=== PATIENT | male | born 1985 | race Caucasian/White ===

== ENCOUNTER 2022-11-23 14:46 | Emergency (ER) | payer MEDICARE, MEDICAID, SELFPAY ==
--- NOTE | 2022-11-23 | ECG_ITS ---
Test Reason : CP Blood Pressure : / mmHG Vent. Rate : 085 BPM Atrial Rate : 085 BPM P-R Int : 144 ms QRS Dur : 090 ms QT Int : 394 ms P-R-T Axes : 069 080 072 degrees QTc Int : 468 ms Normal sinus rhythm Nonspecific ST and T wave abnormality Prolonged QT Abnormal ECG When compared with ECG of 22-OCT-2018 07:26, Vent. rate has increased BY [address] and T wave abnormality is now Present Referred By: Lynette Cuevas Electronically Signed By:MAHIN MI
--- NOTE | ~2022-11-23 | XR_ITS ---
EXAMINATION: XR CHEST CLINICAL INFORMATION: Chest pain COMPARISON: None available. TECHNIQUE: Frontal view of the chest was obtained. FINDINGS: No significant abnormality is noted involving the heart, lungs, mediastinum, bony thorax or soft tissues. No pneumothorax or effusions. Bone anchors left glenoid. XR/XR chest 1V IMPRESSION: No acute cardiopulmonary disease.
[2022-11-23 14:58] VITALS: BP 119/72; BP 135/88; PULSE 82; PULSE 99; RESP 19; TEMP 36.9; O2SAT 94; BMI 19.4
--- NOTE | 2022-11-23 14:59 | ECG_ITS ---
Test Reason : CHEST PAIN Blood Pressure : / mmHG Vent. Rate : 077 BPM Atrial Rate : 077 BPM P-R Int : 144 ms QRS Dur : 090 ms QT Int : 392 ms P-R-T Axes : 073 082 073 degrees QTc Int : 443 ms Normal sinus rhythm with sinus arrhythmia Nonspecific T wave abnormality Abnormal ECG When compared with ECG of 23-NOV-2022 14:57, QT has shortened Referred By: Lynette Cuevas Electronically Signed By:MAHIN MI
--- NOTE | 2022-11-23 15:01 | ED_ITS ---
HPI - Chest Pain General Chief Complaint: Chest Pain Stated Complaint: CP X4 DAYS,SEEN@[email or web address] T-1 FOR SAME PER EMS Time Seen by Provider: 11/23/22 14:49 Source: patient Mode of arrival: EMS Limitations: no limitations History of Present Illness HPI narrative: Patient comes to the emergency room complaining of chest pain that started an hour while he was at work. Patient states that he was recently seen at [facility] , patient states he was recently diagnosed with new onset atrial fibrillation. Per EMS, patient has been in sinus rhythm the whole time. Patient was given nitro sublingual and aspirin in the ambulance. Patient admits using cocaine. EMS gives the patient aspirin and nitroglycerin. Related Data Allergies Allergy/AdvReac Type Severity Reaction Status Date / Time LAUNDRY DETERGENT Allergy Unknown UNKNOWN Uncoded 12/19/19 15:32 Review of Systems Review of Systems: Constitutional : No Weight loss, No Fever, No Chills, No Night Sweats, No Fatigu e, No Malaise ENT/Mouth : No Hearing loss, No Ear Pain, No Nasal Congestion, No Sinus Pain, No Hoarseness, No sore throat, No Rhinorrhea, No Swallowing Difficulty Eyes: No Eye Pain, No Swelling, No Redness, No Foreign Body, No Discharge, No Vision Changes Cardiovascular complaining of sharp substernal chest pain,, No SOB, No Dyspnea on Exertion, No Orthopnea, No Edema, No Palpitations Respiratory : No Cough, No Sputum, No Wheezing, No Smoke Exposure, No Dyspnea Gastrointestinal : No Nausea, No Vomiting, No Diarrhea, No Constipation, No abdominal Pain, No Hematochezia, No Melena Genitourinary : no irregular bleeding, No Dysuria, No Urinary Frequency, No Hematuria, No Urinary Incontinence, No Urgency, No Flank Pain, No Urinary Flow Changes, No Hesitancy Musculoskeletal : No joint pain, No Myalgias, No Joint Swelling Skin : No Skin Lesions, No rash Neuro : No Weakness, No Numbness, No Paresthesias, No Loss of Consciousness, No Dizziness, No Headache Psych : No Anxiety/Panic, No Depression, No SI/HI/AH/VH, No Social Issues, Heme/Lymph: No Bruising, No Bleeding,No Lymphadenopathy Endocrine : No Polyuria, No Polydipsia, No Temperature Intolerance PMFSH Past Medical History Medical History (Updated 11/23/22 @ 17:48 by Lynette Cuevas MD) Polysubstance abuse Social History Social History Advance Directives: No Advance Directives Information Provided: No Physical Exam Vital Signs: Vital Signs: Last Vital Signs Temp 98.4 F 11/23/22 14:58 Pulse 72 11/23/22 16:40 Resp 12 11/23/22 16:40 BP 103/60 11/23/22 16:40 Pulse Ox 99 11/23/22 16:40 O2 Del Method Room Air 11/23/22 16:40 BMI result Body Mass Index 19.4 Const: Other: Appearance: Alert. Oriented X3. No acute distress. Eyes: Pupils equal, round and reactive to light. ENT: Pharynx normal. Neck: Normal inspection. Neck supple. No lymph nodes noted. No crepitus CVS: Normal heart rate and rhythm. Pulses normal. Normal S1 and S2 Respiratory: No respiratory distress. Breath sounds normal. No Wheezing. No rales Abdomen: Soft and nontender. No rigidity. No distention. Skin: Skin warm and dry. Normal skin color. Normal skin turgor. Extremities: No lower extremity edema. No Lacerations. No Rash Neuro: Oriented X 3. No motor deficit. No sensory deficit. Moving all extremities. No slurred speech. CN 2 through 12 grossly intact Psych: calm, cooperative, normal affect Medical Decision Making Medical Decision Making MDM Narrative: -my interpretation of EKG: Normal sinus rhythm, heart rate 77, no ST segment depression or elevation, no T-wave inversion, QTC 443 -my interpretation of labs, white blood cell count 7.6, D-dimer negative, no significant electrolyte abnormalities, BMP and troponin negative -my interpretation of chest x-ray: No Pneumonia/infiltrate -vitals normal, blood pressure 119/72, heart rate 82, no fever -I requested records from [facility], patient was discharged on 11/14/2022, diagnosed with chest pain related to cocaine into some basal spasms or other drug contaminant with no cardiac enzyme changes Differential Diagnosis Differential Diagnoses: The differential diagnosis associated with the presentation includes (Cocaine induced vasospasm, pleurisy, ACS, PE) Admission/Observation Consideration of admission/observation: Escalation of care including admission/observation considered (Patient complaining of chest pain, admission was considered) Lab Data MDM Lab Attestation statement: I reviewed the patient's lab results. 11/23/22 15:57 11/23/22 15:57 Labs: Lab Results 11/23/22 11/23/22 11/23/22 Range/Units 15:57 15:57 15:57 WBC 7.6 (4.8-10.8) X10*3/uL RBC 4.28 L (4.60-5.80) X10*6/uL Hgb 13.8 L (14.0-18.0) g/dl Hct 41.1 L (42.0-52.0) % MCV 96.0 (80.0-98.0) fL MCH 32.2 (27.0-33.0) pg MCHC 33.6 (31.0-36.0) g/dl RDW 12.3 (11.0-16.0) % Plt Count 219 (160-400) X10*3/uL MPV 10.4 (9.4-12.4) fL Immature Gran % (Auto) 0.3 (0.0-0.4) % Neut % (Auto) 58.9 (45-73) % Lymph % (Auto) 29.6 (20-40) % [place] % (Auto) 7.5 (2-11) % Eos % (Auto) 3.0 (0-4) % Baso % (Auto) 0.7 (0-2) % Lymph # (Auto) 2.3 (1.2-4.9) X10*3/uL [place] # (Auto) 0.6 (0.1-1.2) X10*3/uL Eos # (Auto) 0.2 (0.0-0.4) X10*3/uL Baso # (Auto) 0.1 (0.0-0.2) X10*3/uL Abs Immat Gran (auto) 0.02 (0.00-0.03) X10*3/uL Absolute Neuts (auto) 4.5 (2.0-8.3) x10*3/uL Absolute Nucleated RBC 0.000 (0.0-0.012) X10*3/uL Nucleated RBC % (auto) 0.0 (0.0-0.2) /100WBC PT (11.1-13.3) SEC INR (0.9-1.1) D-Dimer High Sensitivty < 150 NG/ML Sodium 138 (135-145) mmol/L Potassium 3.8 (3.3-5.1) mmol/L Chloride 103 (96-108) mmol/L Carbon Dioxide 28 (22-29) mmol/L Anion Gap 11 L (12-20) BUN 23 H (9-16) mg/dL Creatinine 0.95 (0.5-1.4) mg/dL Estim Creat Clear Calc 87.8 Estimated GFR > 60 Random Glucose 128 H (60-115) mg/dL Calcium 9.6 (8.4-10.2) mg/dL Magnesium 2.1 (1.6-2.6) mg/dL Total Bilirubin 0.2 (0.0-1.0) mg/dL Direct Bilirubin < 0.2 (0.0-0.5) mg/dL AST 15 (5-37) U/L ALT 13 (0-40) U/L Alkaline Phosphatase 60 (39-117) U/L Troponin I High Sens (<3.5-35.0) ng/L B-Natriuretic Peptide (<100) pg/mL Total Protein 6.6 (6.5-8.0) g/dL Albumin 4.2 (3.5-5.0) g/dL Ethyl Alcohol mg/dL 11/23/22 11/23/22 11/23/22 Range/Units 15:57 15:57 15:57 WBC (4.8-10.8) X10*3/uL RBC (4.60-5.80) X10*6/uL Hgb (14.0-18.0) g/dl Hct (42.0-52.0) % MCV (80.0-98.0) fL MCH (27.0-33.0) pg MCHC (31.0-36.0) g/dl RDW (11.0-16.0) % Plt Count (160-400) X10*3/uL MPV (9.4-12.4) fL Immature Gran % (Auto) (0.0-0.4) % Neut % (Auto) (45-73) % Lymph % (Auto) (20-40) % [place] % (Auto) (2-11) % Eos % (Auto) (0-4) % Baso % (Auto) (0-2) % Lymph # (Auto) (1.2-4.9) X10*3/uL [place] # (Auto) (0.1-1.2) X10*3/uL Eos # (Auto) (0.0-0.4) X10*3/uL Baso # (Auto) (0.0-0.2) X10*3/uL Abs Immat Gran (auto) (0.00-0.03) X10*3/uL Absolute Neuts (auto) (2.0-8.3) x10*3/uL Absolute Nucleated RBC (0.0-0.012) X10*3/uL Nucleated RBC % (auto) (0.0-0.2) /100WBC PT 12.3 (11.1-13.3) SEC INR 1.0 (0.9-1.1) D-Dimer High Sensitivty NG/ML Sodium (135-145) mmol/L Potassium (3.3-5.1) mmol/L Chloride (96-108) mmol/L Carbon Dioxide (22-29) mmol/L Anion Gap (12-20) BUN (9-16) mg/dL Creatinine (0.5-1.4) mg/dL Estim Creat Clear Calc Estimated GFR Random Glucose (60-115) mg/dL Calcium (8.4-10.2) mg/dL Magnesium (1.6-2.6) mg/dL Total Bilirubin (0.0-1.0) mg/dL Direct Bilirubin (0.0-0.5) mg/dL AST (5-37) U/L ALT (0-40) U/L Alkaline Phosphatase (39-117) U/L Troponin I High Sens < 2.7 (<3.5-35.0) ng/L B-Natriuretic Peptide < 10 (<100) pg/mL Total Protein (6.5-8.0) g/dL Albumin (3.5-5.0) g/dL Ethyl Alcohol mg/dL 11/23/22 Range/Units 15:57 WBC (4.8-10.8) X10*3/uL RBC (4.60-5.80) X10*6/uL Hgb (14.0-18.0) g/dl Hct (42.0-52.0) % MCV (80.0-98.0) fL MCH (27.0-33.0) pg MCHC (31.0-36.0) g/dl RDW (11.0-16.0) % Plt Count (160-400) X10*3/uL MPV (9.4-12.4) fL Immature Gran % (Auto) (0.0-0.4) % Neut % (Auto) (45-73) % Lymph % (Auto) (20-40) % [place] % (Auto) (2-11) % Eos % (Auto) (0-4) % Baso % (Auto) (0-2) % Lymph # (Auto) (1.2-4.9) X10*3/uL [place] # (Auto) (0.1-1.2) X10*3/uL Eos # (Auto) (0.0-0.4) X10*3/uL Baso # (Auto) (0.0-0.2) X10*3/uL Abs Immat Gran (auto) (0.00-0.03) X10*3/uL Absolute Neuts (auto) (2.0-8.3) x10*3/uL Absolute Nucleated RBC (0.0-0.012) X10*3/uL Nucleated RBC % (auto) (0.0-0.2) /100WBC PT (11.1-13.3) SEC INR (0.9-1.1) D-Dimer High Sensitivty NG/ML Sodium (135-145) mmol/L Potassium (3.3-5.1) mmol/L Chloride (96-108) mmol/L Carbon Dioxide (22-29) mmol/L Anion Gap (12-20) BUN (9-16) mg/dL Creatinine (0.5-1.4) mg/dL Estim Creat Clear Calc Estimated GFR Random Glucose (60-115) mg/dL Calcium (8.4-10.2) mg/dL Magnesium (1.6-2.6) mg/dL Total Bilirubin (0.0-1.0) mg/dL Direct Bilirubin (0.0-0.5) mg/dL AST (5-37) U/L ALT (0-40) U/L Alkaline Phosphatase (39-117) U/L Troponin I High Sens (<3.5-35.0) ng/L B-Natriuretic Peptide (<100) pg/mL Total Protein (6.5-8.0) g/dL Albumin (3.5-5.0) g/dL Ethyl Alcohol < 10 mg/dL Independent Interpretation I performed an independent interpretation of an: EKG and Plain X-Ray Radiology Impression Discussion of test interpretation with radiology: I have reviewed the radiologist's reading. Radiologist Impression: FINDINGS: No significant abnormality is noted involving the heart, lungs, mediastinum, bony thorax or soft tissues. No pneumothorax or effusions. Bone anchors left glenoid. XR/XR chest 1V IMPRESSION: No acute cardiopulmonary disease. External Record Review External record reviewed: Inpatient record (From [facility]) Critical Care Time Critical Care Time Critical Care Time: Yes Total Critical Care Time: 60 Attestation: I have personally provided critical care time. Time includes review of lab data, radiology results, discussion with consultants, and monitoring for potential decompensation. Intervention performed as documented. Discharge Plan Discharge Clinical Impression: Chest pain Patient Disposition: Home, Self-Care Instructions: Chest Pain (ED) Additional Instructions: Please stop using cocaine. Cocaine may cause spasms in the coronary arteries in your heart, which may mimic a heart attack. Please follow-up with your primary care physician tomorrow. If you have any worsening or new symptoms, please return to the emergency room or call 911
[2022-11-23 16:07] LABS: MANUAL DIFF FLAG NO
[2022-11-23 16:12] LABS: Basophils Absolute Auto 0.1 X10*3/uL (0.0-0.2); Basophils Percent Auto 0.7 % (0-2); Eosinophils Absolute Auto 0.2 X10*3/uL (0.0-0.4); Hematocrit 41.1 % (42.0-52.0); Hemoglobin 13.8 g/dl (14.0-18.0); Imm Gran Abs Auto 0.02 X10*3/uL (0.00-0.03); Imm Gran Pct Auto 0.3 % (0.0-0.4); Lymphocytes Absolute Auto 2.3 X10*3/uL (1.2-4.9); Lymphocytes Percent Auto 29.6 % (20-40); Mean Corpuscular HGB Conc 33.6 g/dl (31.0-36.0); Mean Corpuscular Hemoglobin 32.2 pg (27.0-33.0); Mean Platelet Volume 10.4 fL (9.4-12.4); Monocytes Absolute Auto 0.6 X10*3/uL (0.1-1.2); Monocytes Percent Auto 7.5 % (2-11); Neutrophils Absolute Auto 4.5 x10*3/uL (2.0-8.3); Neutrophils Percent Auto 58.9 % (45-73); Platelet Count 219 X10*3/uL (160-400); Red Blood Count 4.28 X10*6/uL (4.60-5.80); Red Cell Distribution Width 12.3 % (11.0-16.0); White Blood Count 7.6 X10*3/uL (4.8-10.8)
[2022-11-23 16:18] LABS: Prothrombin Time 12.3 SEC (11.1-13.3)
[2022-11-23 16:24] LABS: Alanine Aminotransferase 13 U/L (0-40); Albumin Level 4.2 g/dL (3.5-5.0); Alkaline Phosphatase 60 U/L (39-117); Anion Gap 11 (12-20); Aspartate Amino Transferase 15 U/L (5-37); Bilirubin Direct < 0.2 mg/dL (0.0-0.5); Bilirubin Total 0.2 mg/dL (0.0-1.0); Blood Urea Nitrogen 23 mg/dL (9-16); Calcium 9.6 mg/dL (8.4-10.2); Carbon Dioxide 28 mmol/L (22-29); Chloride 103 mmol/L (96-108); Creatinine Clr Calc Pharmacy 87.8; Estimated Glomerular Filt Rate > 60; Glucose Random 128 mg/dL (60-115); Magnesium 2.1 mg/dL (1.6-2.6); Potassium 3.8 mmol/L (3.3-5.1); Sodium 138 mmol/L (135-145); Total Protein 6.6 g/dL (6.5-8.0)
[2022-11-23 16:25] LABS: Ethanol < 10 mg/dL
[2022-11-23 16:28] LABS: B Type Natriuretic Peptide < 10 pg/mL (<100)
[2022-11-23 16:33] LABS: Troponin-I High Sensitivity < 2.7 ng/L (<3.5-35.0)
[2022-11-23 16:40] VITALS: BP 103/60; PULSE 72; RESP 12; O2SAT 99
[2022-11-23 16:49] LABS: D Dimer High Sensitivity < 150 NG/ML
[2022-11-23 18:03] LABS: Amphetamine Screen Urine Not Detected (Not Detect); Barbiturates, Urine Not Detected (Not Detect); Benzodiazepines Screen Urine Not Detected (Not Detect); Cannabinoid Screen Urine Not Detected (Not Detect); Cocaine Screen Urine POSITIVE (Not Detect); Fentanyl, urine Not Detected (Not Detect); Opiate Screen Urine Not Detected (Not Detect); Phencyclidine Screen Urine Not Detected (Not Detect)
== END 2022-11-23 18:09 | disposition home or self-care (01) ==
PROVIDERS: Emergency Provider Emergency Medicine
DX: R07.9 Chest pain, unspecified (principal); I48.91 Unspecified atrial fibrillation; I49.8 Other specified cardiac arrhythmias; F14.90 Cocaine use, unspecified, uncomplicated; Z79.01 Long term (current) use of anticoagulants; Z79.82 Long term (current) use of aspirin; Z79.899 Other long term (current) drug therapy
CPT/HCPCS: 36415; 71045; 80048; 80076; 80307; 83735; 83880; 84484; 85025; 85379; 85610; 93005; 99283; 99284

== ENCOUNTER 2023-10-10 15:18 | Outpatient (AMB) | payer MEDICARE, MEDICAID, SELFPAY ==
--- NOTE | 2023-10-10 15:35 | MHC.PC.OV ---
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 Pt would like to discuss arthritis and cardiac issues. Allergies LAUNDRY DETERGENT Allergy (Unknown, Uncoded 10/10/23 16:59) UNKNOWN Medication List - Last Reconciled 10/10/23 by LENNY Sullivan fluoxetine 20 mg PO DAILY hydroxyzine HCl 25 mg PO BEDTIME Tobacco use date assessed: 10/10/23 Dental Screening Dental Screen Date: 10/10/23 Was dental information given to patient?: Patient declined HPI [employer]GER [employer]ICATIONS-Requesting Physical Exam HPI Details New pt is here for a PE. Will order labs. Pt has not seen a medical provider in over 30 years. He has a hx of severe anxiety and depression. He is seeing a therapist weekly and a psychiatrist. Denies any SI and HI. Pt c/o bilat knee pain. He reports a hx of arthritis. Will order XRs. Pt reports body/joint pains. Will order labs. [facility] Medical History Anxiety Polysubstance abuse Surgical History Hx of repair of rotator cuff Social History Housing: House Patient Tobacco Use Status: Current everyday Tobacco user Cigarettes Per Day: 20 service: No Current occupational status: unemployed Cognitive needs: No Hearing needs: No Vision needs: No Questionnaire PHQ-9 Over the last 2 weeks, how often have you been bothered by any of the following problems? 92668 - PHQ-9 Billing: Patient declined-do not bill Source: Developed by Drs. Aaron Mcfarlane, Sugey Woods, Dereje Vasquez and colleagues, with an educational tracy from [employer]. AUDIT C Alcohol Use Questionnaire (AUDIT-C) 1. How often do you have a drink containing alcohol?: Monthly or less 2. How many drinks containing alcohol do you have on a typical day when you are drinking?: 1 or 2 3. How often do you have six or more drinks on one occasion?: Never Total Score: 1 Score Reviewed/Action Taken: No CHI-7 AMB Questionnaire CHI-7 Assessment Billing CHI-7 Assessment Tool: pt declined-do not bill Review of Systems Const Denies chills and Denies fever(s) Eyes Denies blurry vision ENT Denies vertigo, Denies dizziness and Denies sore throat Card Denies chest pain at rest, Denies chest pain with activity, Denies diaphoresis, Denies dyspnea and Denies dyspnea on exertion Resp Denies cough, Denies dyspnea, Denies dyspnea on exertion and Denies wheezing GI Denies abdominal pain, Denies melena, Denies hematochezia, Denies constipation, Denies diarrhea and Denies loose stools Denies hematuria Musc Denies numbness and Denies tingling Skin/Breast Denies lesions Neuro Denies vertigo, Denies dizziness, Denies numbness and Denies tingling Psych Denies anxiety, Denies depression, Denies homicidal ideation, Denies suicidal ideation and Denies other (substance abuse) Aller/Immun Denies wheezing Physical exam (Primary Care) Vital Signs: Last Vital Signs Pulse 97 10/10/23 15:37 BP 128/80 10/10/23 15:37 Pulse Ox 97 10/10/23 15:37 Oxygen Delivery Method Room Air 10/10/23 15:37 BMI result Body Mass Index 19.3 Tobacco/Smoking Status: Tobacco use Status Tobacco use date assessed 10/10/23 10/10/23 15:43 Patient Tobacco Use Status Current everyday Tobacco 10/10/23 15:43 Const General: cooperative Nutritional Appearance: well nourished Orientation/consciousness: patient oriented x3 HENMT Head: Yes normal to inspection, Yes normocephalic and Yes atraumatic Ears: TM's normal bilaterally Eyes General: appearance normal, both eyes and all related structures Alignment and Position: alignment normal and position normal Neck Neck: Yes normal visual inspection and Yes no lymphadenopathy Thyroid: Thyroid normal Resp Effort & Inspection: normal respiratory effort Auscultation: clear to auscultation bilaterally Cardio Rate: regular rate Rhythm: regular rhythm Heart sounds: S1 normal heart sound present, S2 normal heart sound present and no murmurs GI Palpation (GI): Soft to palpation and nontender Auscultation: normal bowel sounds Male General Exam: Yes normal external exam Penis: normal penis Scrotum: scrotum normal, testes descended bilaterally and no inguinal hernias Testes: no testicular mass Skin Other: circular scars to bilat dorsal forearms (previous cigarette maria) Rashes: no rashes Neuro General: patient oriented x3, moves all extremities, no focal motor deficits and deep tendon reflexes 2+ bilaterally Romberg Test: Negative Extrem Other: bilat knees: slight crepitus with extension and flexion, tenderness with palpation, no active swelling Psych Appearance: grossly normal Mental Status: mental status grossly normal Speech and movement: Normal speech and movement present Affect: normal affect Attitude: cooperative Thought process: Normal thought process present Thought content: Normal thought content present Insight: Good insight present (Psych) Judgement: Good judgement present (Psych) Assessment and Plan Assessment & Plan (1) Depression: Code(s): F32.A - Depression, unspecified Plan: Following up with therapist and psychiatrist (2) Encounter for routine adult physical exam with abnormal findings: Code(s): Z00. - Encounter for general adult medical examination with abnormal findings Plan: Labs ordered (3) Bilateral knee pain: Code(s): M25.561 - Pain in right knee; M25.562 - Pain in left knee Plan: XRs ordered (4) Joint pain: Code(s): M25.50 - Pain in unspecified joint Plan: XRs ordered and labs ordered Plan The patient agreed to the use of a medical office worker for this encounter. Scribed for LENNY Brooks by Jenifer Vargas medical office worker, on 10/10/2023 at 16:20 EST. Orders: Orders TSH reflex Free T4 Today Z00. - Encounter for general adult medical examination with abnormal findings Lipid Panel Today Z00.01 - Encounter for general adult medical examination with abnormal findings XR knee LT 2V Today M25.561 - Pain in right knee, M25.562 - Pain in left knee Lyme IgG/IgM w/reflex to WB Today M25.50 - Pain in unspecified joint Rheumatoid Factor Today M25.50 - Pain in unspecified joint Cyclic Citrullinated Peptide Today M25.50 - Pain in unspecified joint Complete Blood Count Auto Diff Today Z00. - Encounter for general adult medical examination with abnormal findings Comprehensive [place]. Panel Fast Today Z00.01 - Encounter for general adult medical examination with abnormal findings UA CC w/rflx Micro + Cult Today Z00.01 - Encounter for general adult medical examination with abnormal findings XR knee RT 2V Today M25.561 - Pain in right knee, M25.562 - Pain in left knee Tick-borne Disease Molecular Today M25.50 - Pain in unspecified joint CHEMA Reflex Titer and Pattern Today M25.50 - Pain in unspecified joint Erythrocyte Sedimentation Rate Today M25.50 - Pain in unspecified joint C Reactive Protein Today M25.50 - Pain in unspecified joint Uric Acid Today M25.50 - Pain in unspecified joint Coding Level of Care Code New Pt Level 3 (46703) New Pt Prev Care 40-64y(08206) Diagnoses Depression F32.A Encounter for routine adult physical exam with abnormal findings Z00.01 Bilateral knee pain M25.561; M25.562 Joint pain M25.50
[2023-10-10 15:37] VITALS: BP 128/80; PULSE 97; O2SAT 97; BMI 19.3
== END 2023-10-10 16:44 | disposition home or self-care (01) ==
PROVIDERS: PCP Nurse Practitioner Family; Visit Provider Nurse Practitioner Family
DX: Z00.01 Encounter for general adult medical examination with abnormal findings (principal); F32.A Depression, unspecified; M25.561 Pain in right knee; M25.562 Pain in left knee; M25.50 Pain in unspecified joint
CPT/HCPCS: 99203; 99386

== ENCOUNTER 2023-10-25 09:59 | Outpatient (REF) | payer MEDICAID, SELFPAY ==
--- NOTE | ~2023-10-25 | XR_ITS ---
EXAMINATION: Bilateral knee series CLINICAL INFORMATION: Pain in the right and left knee COMPARISON: None. TECHNIQUE: 2 views of each knee FINDINGS: Left knee: There is well-corticated ossification at the level of the tibial tubercle compatible with old Mehrdad-Schlatter's disease. The bones joints and soft tissues are otherwise unremarkable. No effusion Right knee: The bones joints soft tissues are normal without effusion. XR/XR knee LT 2V IMPRESSION: LEFT KNEE: Findings compatible with old [place]-Schlatter's disease. No acute abnormality RIGHT KNEE: Normal.
--- NOTE | ~2023-10-25 | XR_ITS ---
EXAMINATION: Bilateral knee series CLINICAL INFORMATION: Pain in the right and left knee COMPARISON: None. TECHNIQUE: 2 views of each knee FINDINGS: Left knee: There is well-corticated ossification at the level of the tibial tubercle compatible with old Mehrdad-Schlatter's disease. The bones joints and soft tissues are otherwise unremarkable. No effusion Right knee: The bones joints soft tissues are normal without effusion. XR/XR knee RT 2V IMPRESSION: LEFT KNEE: Findings compatible with old [place]-Schlatter's disease. No acute abnormality RIGHT KNEE: Normal.
[2023-10-25 13:21] LABS: MANUAL DIFF FLAG NO
[2023-10-25 13:30] LABS: Basophils Absolute Auto 0.1 X10*3/uL (0.0-0.2); Basophils Percent Auto 0.7 % (0-2); Eosinophils Absolute Auto 0.1 X10*3/uL (0.0-0.4); Eosinophils Percent Auto 1.8 % (0-4); Hematocrit 47.7 % (42.0-52.0); Hemoglobin 16.5 g/dl (14.0-18.0); Imm Gran Abs Auto 0.03 X10*3/uL (0.00-0.03); Imm Gran Pct Auto 0.4 % (0.0-0.4); Lymphocytes Absolute Auto 2.4 X10*3/uL (1.2-4.9); Lymphocytes Percent Auto 32.9 % (20-40); Mean Corpuscular HGB Conc 34.6 g/dl (31.0-36.0); Mean Corpuscular Hemoglobin 33.5 pg (27.0-33.0); Mean Corpuscular Volume 96.8 fL (80.0-98.0); Mean Platelet Volume 11.3 fL (9.4-12.4); Monocytes Absolute Auto 0.4 X10*3/uL (0.1-1.2); Monocytes Percent Auto 5.5 % (2-11); Neutrophils Absolute Auto 4.2 x10*3/uL (2.0-8.3); Neutrophils Percent Auto 58.7 % (45-73); Platelet Count 252 X10*3/uL (160-400); Red Blood Count 4.93 X10*6/uL (4.60-5.80); Red Cell Distribution Width 12.9 % (11.0-16.0); White Blood Count 7.2 X10*3/uL (4.8-10.8)
[2023-10-25 13:58] LABS: Alanine Aminotransferase 16 U/L (0-40); Albumin Level 4.7 g/dL (3.5-5.0); Alkaline Phosphatase 65 U/L (39-117); Anion Gap 14 (12-20); Aspartate Amino Transferase 16 U/L (5-37); Bilirubin Total 0.4 mg/dL (0.0-1.0); Blood Urea Nitrogen 11 mg/dL (9-16); C Reactive Protein < 0.10 mg/dL (< or = 0.50); Calcium 10.2 mg/dL (8.4-10.2); Carbon Dioxide 25 mmol/L (22-29); Chloride 104 mmol/L (96-108); Cholesterol 169 mg/dL (<200); Estimated Glomerular Filt Rate > 60; Glucose Fasting 86 mg/dL (60-99); HDL Cholesterol 49 mg/dL (>40); LDL Cholesterol Calculated 102 mg/dL (<100); Sodium 139 mmol/L (135-145); Total Protein 7.3 g/dL (6.5-8.0); Triglycerides 93 mg/dL (<150); Uric Acid 4.4 mg/dL (3.4-7.0)
[2023-10-25 14:03] LABS: TSH reflex Free T4 0.95 uIU/mL (0.32-4.0)
[2023-10-25 14:05] LABS: Appearance Urine Clear; Color Urine Yellow; Glucose Urine UA Negative (Negative); Leukocyte Esterase Urine Negative (Negative); Nitrite Urine Negative (Negative); PH 7.5 (5.0-9.0); Urine Blood Negative (Negative); Urine Ketones Negative (Negative); Urine Protein Negative (Neg-Trace)
[2023-10-25 14:06] LABS: Erythrocyte Sedimentation Rate 2 MM/HR (0-15)
[2023-10-25 14:07] LABS: Rheumatoid Factor < 13.0 IU/mL (<15.0)
[2023-10-26 10:58] LABS: Lyme Abs Screen <0.90 index
[2023-10-27 15:18] LABS: Cyclic Citrullinated Peptide <16 UNITS
[2023-10-27 15:47] LABS: A. Phagocytphilium DNA,RT-PCR NOT DETECTED (NOT DETECTED); Babesia Microti DNA, RT-PCR NOT DETECTED (NOT DETECTED); Borrelia Miyamotoi,DNA RT-PCR NOT DETECTED (NOT DETECTED); E.Chaffeensis DNA RT-PCR NOT DETECTED (NOT DETECTED); Lyme(Borrelia ssp)DNA RT-PCR NOT DETECTED (NOT DETECTED)
[2023-10-31 10:08] LABS: Anti Nuclear Antibody Pattern Nuclear, Homogeneous; Anti Nuclear Antibody Screen POSITIVE (NEGATIVE); Anti Nuclear Antibody Titer 1:40 titer
== END 2023-10-25 10:00 | disposition home or self-care (01) ==
LOC: HO.HMGCX 09:59
PROVIDERS: PCP Nurse Practitioner Family; Visit Provider Nurse Practitioner Family
DX: M25.561 Pain in right knee (principal); M25.562 Pain in left knee; M25.50 Pain in unspecified joint; Z13.6 Encounter for screening for cardiovascular disorders; Z00.01 Encounter for general adult medical examination with abnormal findings
CPT/HCPCS: 36415; 73560; 80053; 80061; 81003; 84443; 84550; 85025; 85652; 86038; 86039; 86140; 86200; 86431; 86617; 86618; 87468; 87469; 87478; 87484; 87798

== ENCOUNTER 2023-11-14 08:03 | Outpatient (REF) | payer MEDICAID, SELFPAY ==
--- NOTE | ~2023-11-14 | XR_ITS ---
EXAMINATION: XR SHOULDER, LEFT CLINICAL INFORMATION: Left shoulder pain COMPARISON: None available. TECHNIQUE: AP external rotation, Grashey, scapular Y, and axillary views of the left shoulder. FINDINGS: No acute fracture or dislocation. Postsurgical changes with surgical anchors in the glenoid fossa noted. XR/XR shoulder LT min 2V IMPRESSION: No acute fracture or dislocation. Electronically signed by: Gale Burkett MD 12/12/2023 06:34 PM EDT
== END 2023-11-14 08:04 | disposition home or self-care (01) ==
LOC: HO.HMGCX 08:03
PROVIDERS: PCP Nurse Practitioner Family; Visit Provider Nurse Practitioner Family
DX: M25.512 Pain in left shoulder (principal)
CPT/HCPCS: 73030

== ENCOUNTER 2024-01-15 13:58 | Outpatient (AMB) | payer MEDICARE, MEDICAID, SELFPAY ==
--- NOTE | 2024-01-15 14:00 | A.OFFPC_ITS ---
Vital Signs 01/15/24 14:01 Height 5 ft 9 in Weight 133 lb 8 oz BMI 19.7 BP 132/80 Blood Pressure Location Rt brachial Position Standing Pulse 78 Pulse Source Pulse Oximeter Pulse Oximetry (%) 98 Intake Visit Reasons: 3 Month F/U Intake Note: pt is here for 3 month follow up Allergies LAUNDRY DETERGENT Allergy (Unknown, Uncoded 10/10/23 16:59) UNKNOWN Tobacco use date assessed: 10/10/23 Dental Screening Dental Screen Date: 10/10/23 HPI 3 Month F/U HPI Details Pt c/o joint pains. He reports popping and clicking of his joints, with pains. Pt had a positive CHEMA. He is seeing rheumatology this week. Will order XRs of elbows, increased elbow pains bilat. Denies fever, chills, and dizziness. PFSH Medical History Anxiety Polysubstance abuse Surgical History Hx of repair of rotator cuff Social History Housing: House Patient Tobacco Use Status: Current everyday Tobacco user Cigarettes Per Day: 20 service: No Current occupational status: unemployed Cognitive needs: No Hearing needs: No Vision needs: No Questionnaire PHQ-9 Over the last 2 weeks, how often have you been bothered by any of the following problems? 90615 - PHQ-9 Billing: Patient declined-do not bill Source: Developed by Drs. Aaron Mcfarlane, Sugey Woods, Dereje Vasquez and colleagues, with an educational tracy from [employer]. CHI-7 AMB Questionnaire CHI-7 Assessment Billing CHI-7 Assessment Tool: pt declined-do not bill Review of Systems Const Reports as per HPI Physical exam (Primary Care) Vital Signs: Last Vital Signs Pulse 78 01/15/24 14:01 BP 132/80 01/15/24 14:01 Pulse Ox 98 01/15/24 14:01 BMI result Body Mass Index 19.7 Tobacco/Smoking Status: Tobacco use Status Tobacco use date assessed 10/10/23 01/15/24 14:01 Patient Tobacco Use Status Current everyday Tobacco 01/15/24 14:01 Const General: cooperative Orientation/consciousness: patient oriented x3 Resp Effort & Inspection: normal respiratory effort Auscultation: clear to auscultation bilaterally Cardio Rate: regular rate Rhythm: regular rhythm Heart sounds: S1 normal heart sound present and S2 normal heart sound present Neuro General: patient oriented x3 Extrem Other: with BUE extended with wrist extension and flexion against resistance medial and lateral epicondylitis noted, crepitus to joints especially knees and elbows Psych Appearance: grossly normal Mental Status: mental status grossly normal Speech and movement: Normal speech and movement present Affect: normal affect Attitude: cooperative Thought process: Normal thought process present Thought content: Normal thought content present Insight: Good insight present (Psych) Judgement: Good judgement present (Psych) Coding Level of Care Code Est Pt Level 3 (92323) Diagnoses Elbow pain, chronic M25.529; G89.29 CHEMA positive R76.8 Assessment & Plan Assessment & Plan (1) Elbow pain, chronic: Code(s): M25.529 - Pain in unspecified elbow; G89.29 - Other chronic pain Category: Medical Plan: XRs ordered (2) CHEMA positive: Code(s): R76.8 - Other specified abnormal immunological findings in serum Category: Medical Plan: appt with rheum this week. Plan The patient agreed to the use of a medical affairs leader for this encounter. Scribed for LENNY Brooks by Jenifer Vargas medical affairs leader, on 01/15/2024 at 14:25 EST. Orders: Orders XR elbow LT min 3V Today G89.29 - Other chronic pain, M25.529 - Pain in unspecified elbow
[2024-01-15 14:01] VITALS: BP 132/80; PULSE 78; O2SAT 98; BMI 19.7
== END 2024-01-15 14:48 | disposition home or self-care (01) ==
PROVIDERS: PCP Nurse Practitioner Family; Visit Provider Nurse Practitioner Family
DX: M25.529 Pain in unspecified elbow (principal); G89.29 Other chronic pain; R76.8 Other specified abnormal immunological findings in serum

== ENCOUNTER → 2024-01-15 13:58 | Outpatient (BNVA) | payer MEDICARE, MEDICAID, SELFPAY | PROVIDERS: PCP Nurse Practitioner Family; Visit Provider Nurse Practitioner Family | DX: R76.8 Other specified abnormal immunological findings in serum (principal); M25.522 Pain in left elbow; G89.29 Other chronic pain | CPT/HCPCS: 99212 ==

== ENCOUNTER 2024-01-15 14:50 | Outpatient (REF) | payer MEDICAID, SELFPAY ==
--- NOTE | ~2024-01-15 | XR_ITS ---
EXAMINATION: XR ELBOW RIGHT 3 VIEWS CLINICAL INFORMATION: Pain in unspecified elbow M25.529. COMPARISON: None available TECHNIQUE: AP, lateral, and oblique views of the right elbow. FINDINGS: The bones and soft tissues are normal. No fracture , dislocation or joint effusion. Alignment is anatomic. Mild degenerative changes at the coronoid process. XR/XR elbow RT min 3V IMPRESSION: Mild degenerative changes. No joint effusion. Electronically signed by: Jonathan Merritt DO 03/14/2024 11:42 AM EST
--- NOTE | ~2024-01-15 | XR_ITS ---
EXAMINATION: XR ELBOW LEFT 3 VIEWS CLINICAL INFORMATION: Pain in unspecified elbow M25.529. COMPARISON: None TECHNIQUE: AP, lateral, and oblique views of the left elbow. FINDINGS: The bones and soft tissues are normal. No fracture or joint effusion. Alignment is anatomic. Joint spaces are maintained. XR/XR elbow LT min 3V IMPRESSION: Normal left elbow. Electronically signed by: Jonathan Merritt DO 03/14/2024 11:39 AM MARY
== END 2024-01-15 14:51 | disposition home or self-care (01) ==
LOC: HO.HMGCX 14:50
PROVIDERS: PCP Nurse Practitioner Family; Visit Provider Nurse Practitioner Family
DX: G89.29 Other chronic pain (principal); M25.521 Pain in right elbow; M25.522 Pain in left elbow
CPT/HCPCS: 73080

== ENCOUNTER 2024-03-19 13:41 | Outpatient (AMB) | payer OTHER, SELFPAY ==
--- NOTE | 2024-03-19 14:56 | A.OFFVIS_ITS ---
Vital Signs 03/19/24 15:07 Height 5 ft 9 in Weight 132 lb 0.91 oz BMI 19.5 BP 100/60 Blood Pressure Location Rt brachial Position Sitting Pulse 67 Pulse Source Pulse Oximeter Pulse Oximetry (%) 98 Oxygen Delivery Method Room Air Intake Visit Reasons: + CHEMA Intake Note: Patient presents for +CHEMA. I feel pain all over my joints. I been feeling pain for a year now. Over counter pain didn't work. Allergies LAUNDRY DETERGENT Allergy (Unknown, Uncoded 10/10/23 16:59) UNKNOWN Medication List - Last Reconciled 03/19/24 by Davey Fraire MD hydroxyzine HCl 25 mg PO BEDTIME HPI Comments Details: This is a 39-year-old male who presents for evaluation of a positive CHEMA in the context of diffuse pain. Patient states that for over a year now has been having diffuse pain all the time. The pain is in his neck, shoulders, back, elbows, knees, ankles. States that his mother has ankylosing spondylitis. Patient states that he has morning stiffness lasting over an hour at improves with moving around, a leave does not help his pain. He denies history suggestive of iritis. He denies any unintentional weight loss recently. Denies any unexplained fevers. Has not noticed any significantly swollen joints. [facility] Medical History Anxiety Polysubstance abuse Surgical History Hx of repair of rotator cuff Family History Mother Ankylosing spondylitis Father Stroke Social History Household Members: Significant Other Housing: House Alcohol intake: current Comment: Rare Patient Tobacco Use Status: Current everyday Tobacco user Cigarettes Per Day: 20 service: No Current occupational status: unemployed Cognitive needs: No Hearing needs: No Vision needs: No Review of Systems Const Reports fatigue, Denies fever(s), Denies weight gain and Denies weight loss Musc Reports back pain, Reports myalgias, Reports arthralgias and Reports stiffness Endo Reports fatigue Physical Exam Vital Signs: Last Vital Signs Pulse 67 03/19/24 15:07 BP 100/60 03/19/24 15:07 Pulse Ox 98 03/19/24 15:07 Oxygen Delivery Method Room Air 03/19/24 15:07 BMI result Body Mass Index 19.5 Const General: cooperative, healthy appearing and comfortable Nutritional Appearance: thin Orientation/consciousness: patient oriented x3 Limitations: no limitations HEENT Head: Yes normocephalic and Yes atraumatic Mouth: moist mucous membranes Resp Effort & Inspection: normal respiratory effort and able to speak in complete sentences Auscultation: clear to auscultation bilaterally Cardio Rate: regular rate Rhythm: regular rhythm Skin Other: Multiple that to Neuro General: patient oriented x3 Extrem Other: Numerous fibromyalgia tender points Mild osteoarthritic changes of both hands with no active synovitis Normal nailfold capillaroscopy Normal range of motion of hands, elbows and shoulders without pain No nail pitting Joshua test 10-14.2 cm Negative straight leg raise test bilaterally Negative Fabere test bilaterally No knee swelling , warmth or tenderness bilaterally No knee pain with full flexion-extension bilaterally Assessment & Plan Assessment & Plan (1) CHEMA positive: Code(s): R76.8 - Other specified abnormal immunological findings in serum Category: Medical Plan: This is a 39-year-old male presents for evaluation of a positive CHEMA 1-40 in the context of diffuse pain. Mother has ankylosing spondylitis. Upon evaluation his symptoms are rather consistent with fibromyalgia however given male sex, his age and positive family history I will order an x-ray of his SI joints to rule out sacroiliitis Discussed management of fibromyalgia with patient. Is a noninflammatory, non- autoimmune central afferent processing disorder leading to a diffuse pain syndrome. Patient follows up regularly with a psychiatrist and a psychotherapist. Try to follow sleep hygiene practices. Discuss a referral for a sleep study to rule out LEIDY by PCP. Patient would benefit from increased physical activity, either through formal physical therapy or by joining a gym. Advised patient that she should start activity slowly and increase as tolerated. Consider low-impact exercises such as walking, swimming, aqua therapy stretching, light weights I provided patient with a booklet on fibromyalgia management. If there are any signs of sacroiliitis on SI joint x-ray we will call patient to for follow-up Follow-up with PCP. Plan I spent 45 minutes reviewing patient's chart, evaluating patient, ordering diagnostic workup, counseling patient and documenting in the chart Orders: Orders XR sacroiliac joint min 3V Today M54.50 - Low back pain, unspecified Coding Level of Care Code New Pt Level 4 (77241) Diagnoses CHEMA positive R76.8
[2024-03-19 15:07] VITALS: BP 100/60; PULSE 67; O2SAT 98; BMI 19.5
== END 2024-03-19 15:40 | disposition home or self-care (01) ==
LOC: HO.RHE 13:41
PROVIDERS: PCP Nurse Practitioner Family; Visit Provider Student in an Organized Health Care Education/Training Program
DX: R76.8 Other specified abnormal immunological findings in serum (principal)
CPT/HCPCS: 99204

== ENCOUNTER → 2024-03-19 13:41 | Outpatient (BNVA) | payer OTHER, SELFPAY | PROVIDERS: PCP Nurse Practitioner Family; Visit Provider Student in an Organized Health Care Education/Training Program | DX: R76.8 Other specified abnormal immunological findings in serum (principal) | CPT/HCPCS: 99202 ==

== ENCOUNTER 2024-05-28 12:19 | Outpatient (AMB) | payer OTHER, SELFPAY ==
--- NOTE | 2024-05-28 12:40 | A.OFFPC_ITS ---
Vital Signs 05/28/24 12:41 Height 5 ft 9 in Weight 134 lb BMI 19.8 BP 118/70 Blood Pressure Location Lt brachial Position Sitting Pulse 88 Pulse Source Pulse Oximeter Temp 97.9 F Temp Source Oral Pulse Oximetry (%) 98 Intake Visit Reasons: 4 month follow up Intake Note: pt is here for 4 month follow up, no concernsat this time Allergies LAUNDRY DETERGENT Allergy (Unknown, Uncoded 05/28/24 12:41) UNKNOWN Medication List - Last Reconciled 05/28/24 by BALAJI Sullivan- quetiapine ER mg PO Tobacco use date assessed: 05/28/24 Dental Screening Dental Screen Date: 05/28/24 Did you have a dental visit in the last 12 months?: Yes Did you have a dental problem in the last 6 months where you did not have access to dental care?: No Was dental information given to patient?: Patient has dentist HPI 4 month follow up HPI Details Chief Complaint Follow-up for anxiety and depressive symptoms. History of Present Illness The patient is a 39-year-old male presenting with a generalized follow-up for Generalized Anxiety Disorder and depressive symptoms. His anxiety and depressive symptoms have been ongoing, with care established with a psychiatrist and a psychologist. Recently, he has been started on Seroquel by his mental health providers. The patient reports experiencing suicidal ideation but denies having any plans or intent to act on these thoughts. He attributes his restraint to his 9-year-old daughter, whom he sees regularly. Additionally, the patient expresses an overall lack of interest in activities; however, he acknowledges having an a ppreciation for several music bands. His mood appears to fluctuate, with support from his girlfriend who accompanies him to visits providing a stabilizing influence. Socially, he has been unemployed and actively seeking employment, having had a previous job requiring extensive daily walking. He remains free from illicit drug use for seven years and does not smoke. #2 referring back to rheum for a different provider work up (joint pains, +CHEMA). 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 - Substance Use: Quit drug use 7 years a go, non-smoker. - Family Status: Has a supportive girlfr iend and a 9-year-old daughter, who is a significant motivator in his life. - Activity: Prior employment involved olver[employer] bstantial walking, continues family activities on weekends. Health Maintenance - Encouraged continuation of job applica tions to maintain activity and provide structure. - Discussed the importance of engaging i n enjoyable activities such as listening to music at home. Review of Systems - Psychological: Reports having thoughts of not wanting to live but denies any plan or intention. - Respiratory: Denies shortness of breat h or cough. Physical Exam General: Cooperative, healthy appearing, comfortable, no acute distress and well developed Orientation: Patient oriented x3 Limitations: No limitations Head: Normal to inspection Ears: Hearing grossly normal bilaterally Nose: Normal external nose present Face and sinus: Normal facial exam Eyes: Appearance normal, both eyes and all related structures Neck: Normal visual inspection and Yes full ROM Respiratory: Normal respiratory effort and able to speak in complete sentences. Clear to auscultation bilaterally Cardiovascular: Regular rate and rhythm. Normal S1 and S2 GI: Normal to inspection. Soft to palpation and nontender Skin: No rashes or lesions noted Neuro: Patient oriented x3 Extremities: Normal to inspection Results Plan - Continue existing care with psychiatri st and psychologist. - Initiate listening to music at home to improve mood and activity levels. - Encourage further job application effo rts for potential employment. - Avoidance of substance use and mainten ance of healthy lifestyle behaviors. Discussion Notes I discussed the patient?s ongoing management of his Generalized Anxiety Disorder and depressive symptoms, with specifics regarding his current medication regimen of Seroquel initiated by his psychiatrist. We talked about the implications of his suicidal ideation, clarifying that he reports no plans or intent. I provided reassurance, highlighting the positive aspects of his support network, particularly his daughter and girlfriend. I advised him to engage in activities that could enhance his quality of life, such as listening to music. Follow-up was arranged for ongoing evaluation in four months, stressing the importance of monitoring his mental health closely. Patient Instructions - Continue to engage in sessions with [facility] psychiatrist and psychologist. - Start listening to music at home to en lyle mood. - Keep applying for job opportunities to maintain a level of activity. - Alert mental health professional if th oughts of self-harm intensify. - Avoid substance use completely. [facility] Medical History (Updated 05/28/24 @ 13:35 by Nicolas Snyder, [facility]) Anxiety Polysubstance abuse Surgical History Hx of repair of rotator cuff Family History Mother Ankylosing spondylitis Father Stroke Social History Household Members: Significant Other Housing: House Alcohol intake: current Comment: Rare Patient Tobacco Use Status: Former Tobacco user Cigarettes Per Day: 20 e-Cigarette/Vaping Use: Currently Using service: No Current occupational status: unemployed Cognitive needs: No Hearing needs: No Vision needs: No Questionnaire PHQ-9 Over the last 2 weeks, how often have you been bothered by any of the following problems? 1. Little interest or pleasure in doing things: nearly every day 2. Feeling down, depressed, or hopeless: nearly every day 3. Trouble falling or staying asleep, or sleeping too much: not at all 4. Feeling tired or having little energy: nearly every day 5. Poor appetite or overeating: not at all 6. Feeling bad about yourself - or that you are a failure or have let yourself or your family down: nearly every day 7. Trouble concentrating on things, such as reading the newspaper or watching television: nearly every day 8. Moving or speaking so slowly that other people could have noticed. Or the opposite - being so fidgety or restless that you have been moving around a lot more than usual: several days 9. Thoughts that you would be better off or of hurting yourself in some way: nearly every day Total score: 19 Depression Screening Interpretation: Positive (denies active SI or HI) Depression Screening Follow-up: Existing condition and In treatment Depression Screening Done: Yes 25458 - PHQ-9 Billing: Yes Source: Developed by Drs. Aaron Mfcarlane, Sugey Woods, Dereje Vasquez and colleagues, with an educational tracy from [employer]. Thrive Questionnaire Date Thrive assessed: 05/28/24 I am a: Patient What is your living situation today?: I have a place to live, but I am worried about losing it in the future Within the past 12 months, did the food you bought not last and you didn't have the money to get more?: Never true Within the past 12 months, did you worry whether your food would run out before you got money to buy more?: Never true Do you have trouble paying for medicines?: No Do you have trouble getting transportation to medical appointments?: Yes Do you have trouble paying your heating and electricity bill?: Yes Do you have trouble taking care of your child, family member or friend?: No Do you have trouble with day-to-day activities such as bathing, preparing meals, shopping, managing finances, etc.?: No Are you currently unemployed and looking for a job?: I choose not to answer this question Are you interested in more education?: No Please select the resources that you would like help with: None Currently or been in a relationship where the following occur: I choose not to answer THRIVE Score: 3 AUDIT C Alcohol Use Questionnaire (AUDIT-C) 1. How often do you have a drink containing alcohol?: Never 3. How often do you have six or more drinks on one occasion?: Never Total Score: 0 Score Reviewed/Action Taken: Yes CHI-7 AMB Questionnaire CHI-7 Date CHI - 7 assessed: 05/28/24 Feeling nervous, anxious, or on edge: 3 = Nearly every day Not being able to stop or control worryin = Nearly every day Worrying too much about different things: 3 = Nearly every day Trouble relaxin = Nearly every day Being so restless that it is hard to sit still: 1 = Several days Becoming easily annoyed or irritable: 3 = Nearly every day Feeling afraid as if something awful might happen: 3 = Nearly every day Total CHI-7 score (0-4 normal; 5-9 mild; 10-14 moderate; 15-21 severe): 19 Source: Developed by Drs. Aaron Mcfarlane, Sugey Woods, Dereje Vasquez and colleagues, with an educational tracy from [employer]. CHI-7 Assessment Billing CHI-7 Assessment Tool: CHI-7 Assessment 83223 (no active SI or HI, in treatment) Physical exam (Primary Care) Vital Signs: Last Vital Signs Temp 97.9 F 05/28/24 12:41 Pulse 88 05/28/24 12:41 BP 118/70 05/28/24 12:41 Pulse Ox 98 05/28/24 12:41 BMI result Body Mass Index 19.8 Tobacco/Smoking Status: Tobacco use Status Tobacco use date assessed 05/28/24 05/28/24 12:44 Patient Tobacco Use Status Former Tobacco user 05/28/24 12:44 e-Cigarette/Vaping Use Currently Using 05/28/24 12:44 PHQ-9: PHQ-9 Score PHQ-9: Total score 19 05/28/24 12:45 Depression Screening Interpretation: Positive (denies active SI or HI) Depr ession Screening Follow-up: Existing condition and In treatment Thrive Assessment: Date of Thrive Assessment Date Thrive assessed 05/28/24 05/28/24 12:44 Currently or been in a relationship where the following occur: I choose not to answer Coding Level of Care Code Est Pt Level 3 (12751) Diagnoses CHEMA positive R76.8 Depression F32.A Anxiety F41.9 Additional Codes PHQ-9 - 12237 - PHQ-9 Billing: Yes ([id number]) CHI-7 Assessment Billing - CHI-7 Assessment Tool: CHI-7 Assessment 80481 ([id number]) Assessment & Plan Assessment & Plan (1) CHEMA positive: Code(s): R76.8 - Other specified abnormal immunological findings in serum Category: Medical (2) Depression: Code(s): F32.A - Depression, unspecified Category: Medical (3) Anxiety: Code(s): F41.9 - Anxiety disorder, unspecified Category: Medical Plan . Orders: Referrals Rheumatology Referral R76.8 - Other specified abnormal immunological findings in serum
[2024-05-28 12:41] VITALS: BP 118/70; PULSE 88; TEMP 36.6; O2SAT 98; BMI 19.8
--- OUTSIDE RECORDS SUMMARY | 2024-05-28 14:57 | XMS_ITS | Encounter Summary ---
Author Organization [employer] Address [address] [place] [address] Care Team Providers Care Design/Animation Instructor Name Role Phone Unavailable Primary Care Provider Unavailabl e Reason for Visit * Reason Onset Date Comments New Patient 01/12/2023 Encounter Details Date Type Department Care Team ([facility] st Contact Info) Description 01/12/2023 Telephone [facility] MEDICINE [address] [place], [place] [phone] Carrington Quezada MD [address] [place], [place] [phone] New Patient Social History Tobacco Use Types Packs/Day Years Used Date Smoking Tobacco: Never Assessed Sex and Gender Information Value Date Recorded Sex Assigned at Male 01/31/2022 10:19 AM EDT Legal Sex Male 10:19 AM EDT Gender Identity Not on file Sexual Orientation Not on file documented as of this encounter Miscellaneous Notes * Telephone Encounter - Isiah May - 01/18/2023 3:36 PM EDT New Patients Par Isiah Fine called to schedule New patient appt, pt did not answer left voicemail to give a call at [phone]. * Telephone Encounter - Isiah May - 01/12/2023 4:27 PM EDT Pt has been transfer over to wait list for COLDFUSION. EFFECTIVE SINCE 01/12/2023 documented in this encounter Plan of Treatment Not on file documented as of this encounter Visit Diagnoses Not on filedocumented in this encounter
--- OUTSIDE RECORDS SUMMARY | 2024-05-28 14:57 | XMS_ITS | Clinical Summary ---
Author Organization [employer] Address [address] [place] [address] Care Team Providers Care Cell Lead Name Role Phone Unavailable Primary Care Provider Unavailabl e Social History Tobacco Use Types Packs/Day Years Used Date Smoking Tobacco: Never Assessed Sex and Gender Information Value Date Recorded Sex Assigned at Male 01/31/2022 10:19 AM EDT Legal Sex Male 10:19 AM EDT Gender Identity Not on file Sexual Orientation Not on file Plan of Treatment Health Maintenance Due Date Last Done Comments Depression Screening 1983 HIV Screening 1983 Lipid Panel 1983 SDOH Screening 1983 Alcohol/Substance Use Screening 1995 Tobacco Screening 1995 Family Planning (PISQ) 1998 Hepatitis C Screening 2001 DTaP/Tdap/Td Vaccines (1 - Tdap) 2002 Hepatitis B Vaccines (1 of 3 - 19+ 3-dose series) 2002 COVID-19 Vaccine ( - 2023-2 5 season) 2023 Influenza Vaccine (#1) 2023 Zoster Vaccines (1 of 2) 2033 RSV Patients and Pa tients Aged 60 years or older (1 - 1-dose 75+ series) 2058 HIB Vaccines Aged Out No longer eligi ble based on patient's age to complete this topic HPV Vaccines Aged Out No longer eligi ble based on patient's age to complete this topic Hepatitis A Vaccines Aged Out No long er eligible based on patient's age to complete this topic IPV Vaccines Aged Out No longer eligi ble based on patient's age to complete this topic Meningococcal Vaccine Aged Out No jose elias vikas eligible based on patient's age to complete this topic Pneumococcal Vaccine: Pediat rics (0 to 5 Years) and At-Risk Patients (6 to 49) Years) Aged Out No longer eligible b ased on patient's age to complete this topic RSV under 20 months Aged Out No longe r eligible based on patient's age to complete this topic Rotavirus Vaccines Aged Out No longer eligible based on patient's age to complete this topic Insurance [facility] STANDARD
== END 2024-05-28 13:47 | disposition home or self-care (01) ==
PROVIDERS: PCP Nurse Practitioner Family; Visit Provider Nurse Practitioner Family
DX: R76.8 Other specified abnormal immunological findings in serum (principal); F32.A Depression, unspecified; F41.9 Anxiety disorder, unspecified

== ENCOUNTER → 2024-05-28 12:19 | Outpatient (BNVA) | payer OTHER, SELFPAY | PROVIDERS: PCP Nurse Practitioner Family; Visit Provider Nurse Practitioner Family | DX: R76.8 Other specified abnormal immunological findings in serum (principal); F32.A Depression, unspecified; F41.9 Anxiety disorder, unspecified | CPT/HCPCS: 96127; 99212 ==

== ENCOUNTER 2024-06-13 10:10 | Outpatient (REF) | payer OTHER, SELFPAY ==
--- OUTSIDE RECORDS SUMMARY | 2024-06-13 13:35 | XMS_ITS | Clinical Summary ---
Author Organization [employer] Address [address] [facility] [address] [place] [address] Care Team Providers Care Performance Consultant Name Role Phone Unavailable Primary Care Provider [...] patient's age to complete this topic Insurance [facility] STANDARD
--- OUTSIDE RECORDS SUMMARY | 2024-06-13 13:35 | XMS_ITS | Encounter Summary ---
Author Organization [employer] Address [address] [facility] [address] [place] [address] Care Team Providers Care Outreach Nurse Name Role Phone Unavailable Primary Care Provider Unavailabl e Reason for Visit * Reason Onset Date Comments New Patient 01/12/2023 Encounter Details Date Type Department Care Team ([facility] st Contact Info) Description 01/12/2023 Telephone [facility] MEDICINE [address] [place], [place] [phone] Carrington Quezada MD [address] [place], [place] [phone] New Patient Social History Tobacco Use Types [...] left voicemail to give a call at [phone]. 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 EFFECTIVE SINCE 01/12/2023 documented in this encounter Plan of Treatment Not on file documented as of this encounter Visit Diagnoses Not on filedocumented in this encounter
== END 2024-06-13 10:11 | disposition home or self-care (01) ==
LOC: HO.LNP 10:10
PROVIDERS: PCP Nurse Practitioner Family; Referring Provider Nurse Practitioner Family; Visit Provider Surgery
DX: K64.5 Perianal venous thrombosis (principal)
CPT/HCPCS: 46320; 88304; 99202; J2004

== ENCOUNTER 2024-06-13 10:10 | Outpatient (AMB) | payer OTHER, SELFPAY ==
--- NOTE | 2024-06-13 10:12 | MHC.OFFVIS ---
Vital Signs 06/13/24 10:17 Height 5 ft 9 in Weight 142 lb BMI 21.0 BP 116/71 Blood Pressure Location Rt brachial Position Sitting Pulse 83 Intake Visit Reasons: hemorroids Intake Note: Patient referred by pcp Nicolas CARPIO for hemorrhoids. Present for 2wks. Has never had a colonoscopy. Patient c/o: constipation. Taking Metamucil PRN. Peripheral Vascular Tech Required: No Accompanied by: Nehal Girlfriend Allergies LAUNDRY DETERGENT Allergy (Unknown, Uncoded 06/13/24 10:17) UNKNOWN HPI Comments Details: Patient presents with symptoms consistent with a thrombosed hemorrhoid. He had this in the distant past. He this has recurred in the same spot. His very painful and swollen. Patient has history of constipation has had a recently which he thinks has aggravated/produces current situation. He otherwise has regular bowel habits. Chart was reviewed and patient evaluated. Patient presents here with his significant other. [facility] Medical History Anxiety Polysubstance abuse Surgical History Hx of repair of rotator cuff Family History Mother Ankylosing spondylitis Father Stroke Social History Household Members: Significant Other Housing: House Alcohol intake: current Comment: Rare Patient Tobacco Use Status: Former Tobacco user Cigarettes Per Day: 20 e-Cigarette/Vaping Use: Currently Using service: No Current occupational status: unemployed Cognitive needs: No Hearing needs: No Vision needs: No Physical Exam Vital Signs: Last Vital Signs Pulse 83 06/13/24 10:17 BP 116/71 06/13/24 10:17 BMI result Body Mass Index 21.0 GI Other: Abdomen is soft, benign. Patient in the prone position as a large thrombosed external hemorrhoid of the right side. Office Procedures Excision Details: Risks, benefits, alternatives of excision of thrombosed external hemorrhoid reviewed with the patient included but not limited to bleeding, infection, recurrence, numbness, pain, scarring the patient wished to proceed. All questions answered. After appropriate positioning, patient underwent 1% lidocaine and Betadine prep and uneventful excision of thrombosed external hemorrhoid. Specimen sent to pathology. Wound base cauterized silver nitrate followed by sterile dressing. Patient tolerated procedure well. Procedure code (CPT) selection complete Office Meds lidocaine 1 %-epinephrine 1:100,000 injection solution Performing Provider: Lester Parker MD [place] [facility] Administered by: Lesetr Parker MD on 06/13/24 10:40 Dose Route Admin Location Dispensed Lot Number Expiration Date [facility] [employer] 10 mL Infiltration 10 mL Assessment & Plan Assessment & Plan (1) Thrombosed external hemorrhoids: Code(s): K64.5 - Perianal venous thrombosis Category: Surgical Plan: Patient was been given local instructions including Sitz baths, stool softeners, he can not take narcotics so he has been given a script for Motrin. He will see me as directed or p.r.n.. All questions answered. Orders: Orders AMB Excision Today K64.5 - Perianal venous thrombosis Medications: New ibuprofen 800 mg PO Q8H PRN 30 tabs 0RF pain lidocaine-epinephrine 1 %-1:100,000 10 mL Infiltration ONCE 30 mL 0RF K64.5 - Perianal venous thrombosis Coding Level of Care Code New Pt Level 5 (17527) Diagnoses Thrombosed external hemorrhoids K64.5
[2024-06-13 10:17] VITALS: BP 116/71; PULSE 83; BMI 21.0
--- OUTSIDE RECORDS SUMMARY | 2024-06-13 12:38 | XMS_ITS | Encounter Summary ---
Author Organization [employer] Address [address] [facility] [address] [facility] [address] [place] [address] Care Team Providers Care Engineer Rf Deployment Name Role Phone Unavailable Primary Care Provider Unavailabl e Reason for Visit * Reason Onset Date Comments New Patient 01/12/2023 Encounter Details Date Type Department Care Team ([facility] st Contact Info) Description 01/12/2023 Telephone [facility] MEDICINE [address] [place], [place] [phone] Carrington Quezada MD [address] [place], [place] [phone] New Patient Social History Tobacco Use Types [...] left voicemail to give a call at [phone]. 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 EFFECTIVE SINCE 01/12/2023 documented in this encounter Plan of Treatment Not on file documented as of this encounter Visit Diagnoses Not on filedocumented in this encounter
--- OUTSIDE RECORDS SUMMARY | 2024-06-13 12:38 | XMS_ITS | Clinical Summary ---
Author Organization [employer] Address [address] [facility] 7t [place] [address] Care Team Providers Care Missile Inspector Preflight Name Role Phone Unavailable Primary Care Provider [...] patient's age to complete this topic Insurance [facility] STANDARD
== END 2024-06-13 10:39 | disposition home or self-care (01) ==
LOC: HO.HGS 10:11
PROVIDERS: PCP Nurse Practitioner Family; Referring Provider Nurse Practitioner Family; Visit Provider Surgery
DX: K64.5 Perianal venous thrombosis (principal)
CPT/HCPCS: 46320; 99204

== ENCOUNTER 2024-06-25 12:04 | Outpatient (AMB) | payer OTHER, SELFPAY ==
--- NOTE | 2024-06-25 12:54 | MHC.OFFVIS ---
Intake Visit Reasons: 1 1/2 week follow up excision hemorroids Allergies LAUNDRY DETERGENT Allergy (Unknown, Uncoded 06/13/24 10:17) UNKNOWN HPI Comments Details: Patient presents with a significant other status post thrombosed external hemorrhoid/hemorrhoidectomy last week. Aside from a constipation issue is otherwise doing well. He is tolerating a diet. He has minimal incisional discomfort. PFSH Medical History Anxiety Polysubstance abuse Surgical History Hx of repair of rotator cuff Family History Mother Ankylosing spondylitis Father Stroke Social History Household Members: Significant Other Housing: House Alcohol intake: current Comment: Rare Patient Tobacco Use Status: Former Tobacco user Cigarettes Per Day: 20 e-Cigarette/Vaping Use: Currently Using service: No Current occupational status: unemployed Cognitive needs: No Hearing needs: No Vision needs: No Physical Exam GI Other: Abdomen is soft. Hemorrhoidal wound healing very well Assessment & Plan Assessment & Plan (1) Status post hemorrhoidectomy: Code(s): Z98.890 - Other specified postprocedural states; Z87.19 - Personal history of other diseases of the digestive system Category: Medical Plan Patient was been given local instructions and will otherwise follow-up p.r.n.. All questions answered. Coding Level of Care Code Global (43328) Diagnoses Status post hemorrhoidectomy Z98.890; Z87.19
--- OUTSIDE RECORDS SUMMARY | 2024-06-25 14:54 | XMS_ITS | Clinical Summary ---
Author Organization [employer] Address [address] [facility] 7t [place] [address] Care Team Providers Care Repair Electric Motor Assembler Name Role Phone Unavailable Primary Care Provider [...] patient's age to complete this topic Insurance [facility] STANDARD
--- OUTSIDE RECORDS SUMMARY | 2024-06-25 14:54 | XMS_ITS | Encounter Summary ---
Author Organization [employer] Address [address] [facility] 7[address] [place] [address] Care Team Providers Care Powder Cutting Operator Name Role Phone Unavailable Primary Care Provider Unavailabl e Reason for Visit * Reason Onset Date Comments New Patient 01/12/2023 Encounter Details Date Type Department Care Team ([facility] st Contact Info) Description 01/12/[address] [facility] MEDICINE [address] [place], [place] [phone] Carrington Quezada MD [address] [place], [place] [phone] New Patient Social History Tobacco Use Types [...] left voicemail to give a call at [phone]. 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 EFFECTIVE SINCE 01/12/2023 documented in this encounter Plan of Treatment Not on file documented as of this encounter Visit Diagnoses Not on filedocumented in this encounter
== END 2024-06-25 12:54 | disposition home or self-care (01) ==
LOC: HO.HGS 12:05
PROVIDERS: PCP Nurse Practitioner Family; Visit Provider Surgery
DX: Z98.890 Other specified postprocedural states (principal); Z87.19 Personal history of other diseases of the digestive system
CPT/HCPCS: 99024

== ENCOUNTER → 2024-06-25 12:04 | Outpatient (BNVA) | payer OTHER, SELFPAY | PROVIDERS: PCP Nurse Practitioner Family; Visit Provider Surgery | DX: Z09 Encounter for follow-up examination after completed treatment for conditions other than malignant neoplasm (principal); Z87.19 Personal history of other diseases of the digestive system; Z98.890 Other specified postprocedural states | CPT/HCPCS: 99212 ==

== ENCOUNTER 2024-09-24 13:10 | Outpatient (AMB) | payer OTHER, SELFPAY ==
[2024-09-24 13:16] VITALS: BP 110/72; PULSE 73; O2SAT 97; BMI 21.1
--- NOTE | 2024-09-24 13:16 | MHC.PC.OV ---
Vital Signs 09/24/24 13:16 Height 5 ft 9 in Weight 143 lb BMI 21.1 BP 110/72 Blood Pressure Location Lt brachial Position Sitting Pulse 73 Pulse Source Pulse Oximeter Pulse Oximetry (%) 97 Intake Visit Reasons: 4m follow up Allergies LAUNDRY DETERGENT Allergy (Unknown, Uncoded 09/24/24 14:13) UNKNOWN Medication List - Last Reconciled 09/24/24 by BALAJI Sullivan-LAUREL ibuprofen 800 mg PO Q8H PRN lidocaine 5% 1 appl topical TID PRN Tobacco use date assessed: 05/28/24 Dental Screening Dental Screen Date: 05/28/24 HPI 4m follow up HPI Details Chief Complaint The patient reports severe depression and anxiety. History of Present Illness The patient is a 39-year-old male presenting with severe depression and anxiety. He has tried multiple medications and seen various psychiatric providers with minimal improvement, leading to a reluctance to pursue further psychiatric care. He also experiences severe fatigue, unrelated to sleep apnea, as he does not snore. A positive CHEMA test has been noted, and he has been seen by rheumatology with a suspicion of fibromyalgia. Social History - Family status: Has a daughter whom he sees every other week. - Support system: Has a supportive girlfriend. Health Maintenance Review of Systems - Psychiatric: Reports severe depression and anxiety. Denies suicidal or homicidal ideation. - General: Reports severe fatigue. Physical Exam General: Cooperative, healthy appearing, comfortable, no acute distress and well developed Orientation: Patient oriented x3 Limitations: No limitations Head: Normal to inspection Ears: Hearing grossly normal bilaterally Nose: Normal external nose present Face and sinus: Normal facial exam Eyes: Appearance normal, both eyes and all related structures Neck: Normal visual inspection and Yes full ROM Respiratory: Lungs were fairly clear Cardiovascular: Regular rate and rhythm. Normal S1 and S2 GI: Normal to inspection. Soft to palpation and nontender Skin: No rashes or lesions noted Neuro: Patient oriented x3 Extremities: Normal to inspection Results - Labs: Positive antinuclear antibody (CHEMA). Plan The patient will maintain his current support network to help manage his depression and anxiety, as he is not open to psychiatric intervention at this time. He is scheduled for a follow-up with a contact lens edge buffer to further investigate the positive CHEMA and potential fibromyalgia diagnosis. Blood tests including CBC, liver function, and kidney function will be performed to ensure comprehensive health monitoring. Discussion Notes I discussed with the patient the importance of maintaining his support system to manage his depression and anxiety, given his reluctance to seek psychiatric care. We also reviewed the need for further rheumatological evaluation due to his positive CHEMA and the suspicion of fibromyalgia. Routine blood work was recommended to monitor his health status. Patient Instructions - Continue engaging with your support network, including your girlfriend and daughter. - Attend the upcoming rheumatology appointment for further evaluation. - Complete the recommended blood tests to monitor your health. [facility] Medical History Anxiety Polysubstance abuse Surgical History Hx of repair of rotator cuff Family History Mother Ankylosing spondylitis Father Stroke Social History Household Members: Significant Other Housing: House Alcohol intake: current Comment: Rare Patient Tobacco Use Status: Former Tobacco user Cigarettes Per Day: 20 e-Cigarette/Vaping Use: Currently Using service: No Current occupational status: unemployed Cognitive needs: No Hearing needs: No Vision needs: No Questionnaire Thrive Questionnaire Date Thrive assessed: 09/24/24 I am a: Patient What is your living situation today?: I have a place to live, but I am worried about losing it in the future Within the past 12 months, did the food you bought not last and you didn't have the money to get more?: Never true Within the past 12 months, did you worry whether your food would run out before you got money to buy more?: Never true Do you have trouble paying for medicines?: No Do you have trouble getting transportation to medical appointments?: Yes Do you have trouble paying your heating and electricity bill?: Yes Do you have trouble taking care of your child, family member or friend?: No Do you have trouble with day-to-day activities such as bathing, preparing meals, shopping, managing finances, etc.?: No Are you currently unemployed and looking for a job?: I choose not to answer this question Are you interested in more education?: No Please select the resources that you would like help with: None Currently or been in a relationship where the following occur: I choose not to answer THRIVE Score: 3 CHI-7 AMB Questionnaire CHI-7 Date CHI - 7 assessed: 05/28/24 Source: Developed by Drs. Aaron Mcfarlane, Sugey Woods, Dereje Vasquez and colleagues, with an educational tracy from [employer]. Physical exam (Primary Care) Vital Signs: Last Vital Signs Pulse 73 09/24/24 13:16 BP 110/72 09/24/24 13:16 Pulse Ox 97 09/24/24 13:16 BMI result Body Mass Index 21.1 Tobacco/Smoking Status: Tobacco use Status Tobacco use date assessed 05/28/24 09/24/24 13:18 Patient Tobacco Use Status Former Tobacco user 09/24/24 13:18 e-Cigarette/Vaping Use Currently Using 09/24/24 13:18 Thrive Assessment: Date of Thrive Assessment Date Thrive assessed 09/24/24 09/24/24 13:18 Currently or been in a relationship where the following occur: I choose not to answer Coding Level of Care Code Est Pt Level 3 (50869) Diagnoses Fatigue R53.83 Anxiety F41.9 Depression F32.A Assessment & Plan Assessment & Plan (1) Fatigue: Code(s): R53.83 - Other fatigue Category: Medical (2) Anxiety: Code(s): F41.9 - Anxiety disorder, unspecified Category: Medical (3) Depression: Code(s): F32.A - Depression, unspecified Category: Medical Plan . Orders: Orders Complete Blood Count Auto Diff Today R53.83 - Other fatigue TSH reflex Free T4 Today R53.83 - Other fatigue Comprehensive [place]. Panel Fast Today R53.83 - Other fatigue UA CC w/rflx Micro + Cult Today R53.83 - Other fatigue Lipid Panel Today R53.83 - Other fatigue
--- OUTSIDE RECORDS SUMMARY | 2024-09-24 15:03 | XMS_ITS | Encounter Summary ---
Author Organization [employer] Address [address] [facility] [address] [place] [address] Care Team Providers Care Cnc Machinist Name Role Phone Unavailable Primary Care Provider Unavailabl e Reason for Visit * Reason Onset Date Comments New Patient 01/12/2023 Encounter Details Date Type Department Care Team ([facility] st Contact Info) Description 01/12/2023 Telephone [facility] MEDICINE [address] [place], [place] [phone] Carrington Quezada MD [address] [place], [place] [phone] New Patient Social History Tobacco Use Types [...] left voicemail to give a call at [phone]. 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 EFFECTIVE SINCE 01/12/2023 documented in this encounter Plan of Treatment Not on file documented as of this encounter Visit Diagnoses Not on filedocumented in this encounter
== END 2024-09-24 15:23 | disposition home or self-care (01) ==
LOC: HO.HMCC 13:11
PROVIDERS: PCP Nurse Practitioner Family; Visit Provider Nurse Practitioner Family
DX: R53.83 Other fatigue (principal); F41.9 Anxiety disorder, unspecified; F32.A Depression, unspecified

== ENCOUNTER → 2024-09-24 13:10 | Outpatient (BNVA) | payer OTHER, SELFPAY | PROVIDERS: PCP Nurse Practitioner Family; Visit Provider Nurse Practitioner Family | DX: F41.9 Anxiety disorder, unspecified (principal); R53.83 Other fatigue; F32.A Depression, unspecified | CPT/HCPCS: 99212 ==

== ENCOUNTER 2024-10-12 10:08 | Outpatient (REF) | payer OTHER, SELFPAY ==
[2024-10-12 13:39] LABS: MANUAL DIFF FLAG NO
[2024-10-12 13:45] LABS: Hematocrit 48.4 % (42.0-52.0); Hemoglobin 16.0 g/dl (14.0-18.0); Imm Gran Abs Auto 0.03 X10*3/uL (0.00-0.03); Imm Gran Pct Auto 0.4 % (0.0-0.4); Lymphocytes Absolute Auto 2.5 X10*3/uL (1.2-4.9); Mean Corpuscular HGB Conc 33.1 g/dl (31.0-36.0); Mean Corpuscular Hemoglobin 30.7 pg (27.0-33.0); Mean Corpuscular Volume 92.7 fL (80.0-98.0); NRBC Abs Auto 0.000 X10*3/uL (0.0-0.012); NRBC Pct Auto 0.0 /100WBC (0.0-0.2); Platelet Count 252 X10*3/uL (160-400); Red Blood Count 5.22 X10*6/uL (4.60-5.80); White Blood Count 8.3 X10*3/uL (4.8-10.8)
[2024-10-12 13:47] LABS: Appearance Urine Clear; Glucose Urine UA Negative (Negative); PH 7.0 (5.0-9.0); Specific Gravity - Urine <= 1.005 (1.005-1.025)
[2024-10-12 14:05] LABS: Alanine Aminotransferase 23 U/L (0-40); Albumin Level 4.8 g/dL (3.5-5.0); Alkaline Phosphatase 65 U/L (39-117); Anion Gap 11 (12-20); Aspartate Amino Transferase 24 U/L (5-37); Blood Urea Nitrogen 12 mg/dL (9-16); Calcium 9.3 mg/dL (8.4-10.2); Carbon Dioxide 29 mmol/L (22-29); Chloride 103 mmol/L (96-108); Cholesterol 205 mg/dL (<200); Estimated Glomerular Filt Rate > 60; HDL Cholesterol 46 mg/dL (>40); Potassium 3.9 mmol/L (3.3-5.1); Sodium 139 mmol/L (135-145); Total Protein 7.1 g/dL (6.5-8.0); Triglycerides 95 mg/dL (<150)
== END 2024-10-12 10:09 | disposition home or self-care (01) ==
LOC: HO.HMGCLDS 10:08
PROVIDERS: PCP Nurse Practitioner Family; Visit Provider Nurse Practitioner Family
DX: R53.83 Other fatigue (principal)
CPT/HCPCS: 36415; 80053; 80061; 81003; 84443; 85025

== ENCOUNTER 2024-10-15 14:53 | Outpatient (AMB) | payer OTHER, SELFPAY ==
--- NOTE | 2024-10-15 14:57 | MHC.PC.OV ---
Vital Signs 10/15/24 14:59 Height 5 ft 9 in Weight 141 lb BMI 20.8 BP 124/84 Blood Pressure Location Rt brachial Position Sitting Respiration 16 Pulse 78 Pulse Source Pulse Oximeter Temp 98.5 F Temp Source Oral Pulse Oximetry (%) 98 Oxygen Delivery Method Room Air Intake Visit Reasons: PE Pet Care Attendant Required: No Allergies LAUNDRY DETERGENT Allergy (Unknown, Uncoded 10/15/24 15:04) UNKNOWN Medication List - Last Reconciled 10/15/24 by LENNY Sullivan ibuprofen 800 mg PO Q8H PRN lidocaine 5% 1 appl topical TID PRN Tobacco use date assessed: 05/28/24 Dental Screening Dental Screen Date: 05/28/24 HPI PE HPI Details History of Present Illness The patient is a 39-year-old male presenting with a primary complaint of joint pain and crepitus. He reports significant joint aches and pains, particularly in the knees and elbows, accompanied by extensive crepitus and tenderness. 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 The patient has a history of anxiety and severe depression, with no current suicidal or homicidal ideation. He also has a history of post-traumatic stress disorder and has consulted multiple psychiatrists and therapists in the past but is currently not seeing any mental health professionals, nor does he want to. He experiences chronic back pain with periodic radicular symptoms and intermittent fatigue. A previous referral to a commercial loan reviewer resulted in a diagnosis of fibromyalgia, and he had a positive CHEMA test. He is scheduled for a follow-up with a different commercial loan reviewer in about a month and a half for a second opinion, which I agree with and look forward to. Health Maintenance Social History Review of Systems - Musculoskeletal: Reports joint pain with crepitus, particularly in knees and elbows. Denies acute inflammation. - Neurological: Reports chronic back pain with radicular symptoms. Denies current suicidal or homicidal ideation. - Psychiatric: Reports history of anxiety, severe depression, and PTSD. Denies current suicidal or homicidal ideation. - General: Reports intermittent fatigue. Physical Exam General: Cooperative, healthy appearing, comfortable, no acute distress and well developed Orientation: Patient oriented x3 Limitations: Discomfort with knee flexion, extension of elbows, knees, hips Head: Normal to inspection Ears: Hearing grossly normal bilaterally Nose: Normal external nose present Face and sinus: Normal facial exam Eyes: Appearance normal, both eyes and all related structures Neck: Normal visual inspection and Yes full ROM Respiratory: Normal respiratory effort and able to speak in complete sentences. Clear to auscultation bilaterally Cardiovascular: Regular rate and rhythm. Normal S1 and S2 GI: Normal to inspection. Soft to palpation and nontender : testicles without masses/lesions and no hernias appreciated Skin: No rashes or lesions noted Neuro: Patient oriented x3 Extremities: Extensive crepitus throughout knees and elbows, tenderness noted, no active swelling Results - Labs: Positive CHEMA, low uric acid, low CRP, low sed rate. - Imaging: Previous x-rays showed Norman-Schlatter disease in knees and mild degenerative changes in the right elbow. Plan The patient will continue to manage his joint pain and fibromyalgia symptoms with the current treatment regimen until the upcoming rheumatology appointment. Further evaluation by the commercial loan reviewer is anticipated to explore underlying rheumatological issues and to adjust treatment as necessary. The patient is advised to maintain a healthy diet to manage cholesterol levels and to monitor any changes in symptoms. Discussion Notes I discussed with the patient the importance of the upcoming rheumatology appointment to further evaluate his joint issues and fibromyalgia. We reviewed his lab results, including the positive CHEMA and low inflammatory markers, and discussed the potential implications for his condition. I emphasized the need for dietary modifications to manage cholesterol levels and encouraged him to report any new or worsening symptoms. Patient Instructions - Continue current treatment for joint pain and fibromyalgia until the rheumatology appointment. - Follow a healthy diet to help manage cholesterol levels. - Monitor for any changes in symptoms and report them promptly. [facility] Medical History Anxiety Polysubstance abuse Surgical History Hx of repair of rotator cuff Family History Mother Ankylosing spondylitis Father Stroke Social History Household Members: Significant Other Housing: House Alcohol intake: current Comment: Rare Patient Tobacco Use Status: Former Tobacco user Cigarettes Per Day: 20 e-Cigarette/Vaping Use: Currently Using service: No Current occupational status: unemployed Cognitive needs: No Hearing needs: No Vision needs: No Questionnaire PHQ-9 Over the last 2 weeks, how often have you been bothered by any of the following problems? 1. Little interest or pleasure in doing things: nearly every day 2. Feeling down, depressed, or hopeless: nearly every day 3. Trouble falling or staying asleep, or sleeping too much: not at all 4. Feeling tired or having little energy: nearly every day 5. Poor appetite or overeating: not at all 6. Feeling bad about yourself - or that you are a failure or have let yourself or your family down: nearly every day 7. Trouble concentrating on things, such as reading the newspaper or watching television: nearly every day 8. Moving or speaking so slowly that other people could have noticed. Or the opposite - being so fidgety or restless that you have been moving around a lot more than usual: several days 9. Thoughts that you would be better off or of hurting yourself in some way: nearly every day Total score: 19 Depression Screening Interpretation: Positive (denies active SI or HI, ) Depression Screening Follow-up: Existing condition and Declines treatment Depression Screening Done: Yes 59183 - PHQ-9 Billing: Yes Source: Developed by Drs. Aaron Mcfarlane, Sugey Woods, Dereje Vasquez and colleagues, with an educational tracy from [employer]. Thrive Questionnaire Date Thrive assessed: 05/28/24 I am a: Patient What is your living situation today?: I have a place to live, but I am worried about losing it in the future Within the past 12 months, did the food you bought not last and you didn't have the money to get more?: Never true Within the past 12 months, did you worry whether your food would run out before you got money to buy more?: Never true Do you have trouble paying for medicines?: No Do you have trouble getting transportation to medical appointments?: Yes Do you have trouble paying your heating and electricity bill?: Yes Do you have trouble taking care of your child, family member or friend?: No Do you have trouble with day-to-day activities such as bathing, preparing meals, shopping, managing finances, etc.?: No Are you currently unemployed and looking for a job?: I choose not to answer this question Are you interested in more education?: No Please select the resources that you would like help with: None Currently or been in a relationship where the following occur: I choose not to answer THRIVE Score: 3 Physical exam (Primary Care) Vital Signs: Last Vital Signs Temp 98.5 F 10/15/24 14:59 Pulse 78 10/15/24 14:59 Resp 16 10/15/24 14:59 BP 124/84 10/15/24 14:59 Pulse Ox 98 10/15/24 14:59 Oxygen Delivery Method Room Air 10/15/24 14:59 BMI result Body Mass Index 20.8 Tobacco/Smoking Status: Tobacco use Status Tobacco use date assessed 05/28/24 10/15/24 14:58 Patient Tobacco Use Status Former Tobacco user 10/15/24 14:58 e-Cigarette/Vaping Use Currently Using 10/15/24 14:58 Depression Screening Interpretation: Positive (denies active SI or HI, ) Depression Screening Follow-up: Existing condition and Declines treatment Thrive Assessment: Date of Thrive Assessment Date Thrive assessed 05/28/24 10/15/24 14:58 Currently or been in a relationship where the following occur: I choose not to answer Coding Level of Care Code Est Pt Prev Care 40-64y(65827) Diagnoses Encounter for routine adult physical exam with abnormal findings Z00.01 Additional Codes PHQ-9 - 27640 - PHQ-9 Billing: Yes ([id number]) Assessment & Plan Assessment & Plan (1) Encounter for routine adult physical exam with abnormal findings: Code(s): Z00.01 - Encounter for general adult medical examination with abnormal findings Category: Medical Plan .
[2024-10-15 14:59] VITALS: BP 124/84; PULSE 78; RESP 16; TEMP 36.9; O2SAT 98; BMI 20.8
--- OUTSIDE RECORDS SUMMARY | 2024-10-15 16:15 | XMS_ITS | Encounter Summary ---
Author Organization [facility] [employer] Address [address] [facility] 7 [place] [address] Care Team Providers Care Metal Fabricating Shop Helper Name Role Phone Unavailable Primary Care Provider Unavailabl e Reason for Visit * Reason Onset Date Comments New Patient 01/12/2023 Encounter Details Date Type Department Care Team ([facility] st Contact Info) Description 01/12/2023 Telephone [facility] MEDICINE [address] [place], [place] [phone] Carrington Quezada MD [address] [place], [place] [phone] New Patient Social History Tobacco Use Types [...] left voicemail to give a call at [phone]. 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 EFFECTIVE SINCE 01/12/2023 documented in this encounter Plan of Treatment Not on file documented as of this encounter Visit Diagnoses Not on filedocumented in this encounter
== END 2024-10-15 15:32 | disposition home or self-care (01) ==
LOC: HO.HMCC 14:54
PROVIDERS: PCP Nurse Practitioner Family; Visit Provider Nurse Practitioner Family
DX: Z00.01 Encounter for general adult medical examination with abnormal findings (principal)

== ENCOUNTER → 2024-10-15 14:53 | Outpatient (BNVA) | payer OTHER, SELFPAY | PROVIDERS: PCP Nurse Practitioner Family; Visit Provider Nurse Practitioner Family | DX: Z00.01 Encounter for general adult medical examination with abnormal findings (principal); F41.9 Anxiety disorder, unspecified; F32.A Depression, unspecified; M54.9 Dorsalgia, unspecified; R53.83 Other fatigue; M25.50 Pain in unspecified joint | CPT/HCPCS: 96127; 99396 ==

== ENCOUNTER 2024-12-17 10:35 | Outpatient (AMB) | payer OTHER, SELFPAY ==
--- NOTE | 2024-12-17 10:55 | A.OFFVIS_ITS ---
Vital Signs 12/17/24 11:07 Height 5 ft 9 in Weight 143 lb 15.39 oz BMI 21.3 BP 115/72 Blood Pressure Location Rt brachial Position Sitting Pulse 78 Pulse Source Pulse Oximeter Pulse Oximetry (%) 98 Oxygen Delivery Method Room Air Intake Visit Reasons: abnormal labs Intake Note: Patient presents for abnormal labs Patient c/o of neck pain, LT shoulder pain, lower back pain, bilateral elbow pain, bilateral wrist pain, bilateral hand pain, bilateral hips pain, bilateral knee pain, bilateral ankle pain and bilateral feet pain. Patient stated he has been in pain for ten years. Ibuprofen for medication and patient stated it doesn't work. Allergies LAUNDRY DETERGENT Allergy (Unknown, Uncoded 10/15/24 15:04) UNKNOWN Medication List - Last Reconciled 12/17/24 by Marina Granger MD ibuprofen 800 mg PO Q8H PRN lidocaine 5% 1 appl topical TID PRN HPI Comments Details: Patient is a 39-year-old male with depression/anxiety, sleep apnea here today for follow up Interval History: Patient last seen 03/19/[address] Fraire - New patient visit for eval of positive CHEMA in the setting of polyarthralgias - No evidence of autoimmune connective tissue disease at that time - Dx with fibromyalgia and given conservative recommendations Today - Not on any rheum medication - Complaining of popping and clicking of multiple joints with pain especially involving his knees, shoulders and back Rheumatologic History: Initial history: This is a 39-year-old male who presents for evaluation of a positive CHEMA in the context of diffuse pain. Patient states that for over a year now has been having diffuse pain all the time. The pain is in his neck, shoulders, back, elbows, knees, ankles. States that his mother has ankylosing spondylitis. Patient states that he has morning stiffness lasting over an hour at improves with moving around, a leave does not help his pain. He denies history suggestive of iritis. He denies any unintentional weight loss recently. Denies any unexplained fevers. Has not noticed any significantly swollen joints. Current Rheumatology Medication(s): [facility] Medical History Anxiety Polysubstance abuse Surgical History Hx of repair of rotator cuff Family History Mother Ankylosing spondylitis Father Stroke Social History Household Members: Significant Other Housing: House Alcohol intake: current Comment: Rare Patient Tobacco Use Status: Former Tobacco user Cigarettes Per Day: 20 e-Cigarette/Vaping Use: Currently Using service: No Current occupational status: unemployed Cognitive needs: No Hearing needs: No Vision needs: No Review of Systems Const Details: Review of Systems Constitutional: Denies fever, chills, weight loss ENT: Denies vision changes, eye pain or eye redness, dental caries, dry mouth GI: Denies nausea, vomiting, diarrhea, abdominal pain, change in BM Pulm: Denies SOB, LAMBERT, hemoptysis, wheezing Cards: Denies chest pain, palpitations Skin: Denies Raynaud's, rash, nail changes, photosensitivity, 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 Patient looked uncomfortable and would get up and sit down several times during the encounter MSK Hands * Right Hand: Able to make a fist. No swelling or tenderness to palpation of the MCPs, PIPs or DIPs. * Left Hand: Able to make a fist. No swelling or tenderness to palpation of the MCPs, PIPs or DIPs. * No evidence of hypermobility in the hands Wrists * Right Wrist: Full ROM to flexion and extension. No swelling or TTP * Left Wrist: Full ROM to flexion and extension. No swelling or TTP Elbows * Right Elbow: Full ROM. No swelling or TTP. No TTP of the medial epicondyle. No TTP of the lateral epicondyle * Left Elbow: Full ROM. No swelling or TTP. No TTP of the medial epicondyle. No TTP of the lateral epicondyle Shoulders * Right shoulder: Full ROM. No swelling noted. No TTP of the AC joint. No TTP of the subacromial bursa. No TTP of the posterior shoulder * Left shoulder: Full ROM. No swelling noted. No TTP of the AC joint. No TTP of the subacromial bursa. No TTP of the posterior shoulder Knees * Right knee: Full ROM. No swelling noted. No TTP of the knee joint line. No TTP of pes anserine bursa * Left knee: Full ROM. No swelling noted. No TTP of the knee joint line. No TTP of pes anserine bursa. Prominent tibial tuberosity * Bilateral patellar maltracking Ankles * Right ankle: Good ankle dorsiflexion and plantar flexion. No swelling. No TTP of the ankle joint * Left ankle: Good ankle dorsiflexion and plantar flexion. No swelling. No TTP of the ankle joint Feet * Right foot: Negative squeeze test * Left foot: Negative squeeze test Tender points? * Tenderness to palpation of the bilateral trapezius, supraspinatus, anterior costochondral junctions, bilateral suboccipital muscle insertions SKIN No rashes Vital Signs: Last Vital Signs Pulse 78 12/17/24 11:07 BP 115/72 12/17/24 11:07 Pulse Ox 98 12/17/24 11:07 Oxygen Delivery Method Room Air 12/17/24 11:07 BMI result Body Mass Index 21.3 Results Reviewed Results Reviewed: Laboratory Tests 10/25/23 10/12/24 10:05 11:05 WBC 8.3 RBC 5.22 Hgb 16.0 Hct 48.4 Plt Count 252 ESR 2 Sodium 139 Potassium 3.9 Chloride 103 Carbon Dioxide 29 BUN 12 Creatinine 0.91 AST 24 ALT 23 C-Reactive Protein < 0.10 Laboratory Tests 10/25/23 10:05 Rheumatoid Factor < 13.0 Cycl Citrul Peptide IgG <16 CHEMA Screen POSITIVE A CHEMA Titer 1:40 H Assessment & Plan Assessment & Plan (1) Fibromyalgia: Code(s): M79.7 - Fibromyalgia Plan: #Fibromyalgia Patient is a 39-year-old male here today for follow up. Given his elevated somatic symptom score and pain score he meets criteria for fibromyalgia. In addition to the fibromyalgia he does have a lot of joint instability including his knees. Discussed with patient and girlfriend that he does not have an autoimmune disease at this time and that his joint complaints are based on mechanical causes. Recommended topical diclofenac, PT and muscle relaxers Plan - Topical diclofenac 1% qid - PT referral for knee instability - Cylcobenzaprin 10mg nightly - RTC 6 months - Consider adding gabapentin at that time Plan This is my first visit with this patient. I spent 40 minutes reviewing the record and labs, taking a history, examining the patient, discussing the treatment plan, ordering diagnostic work up and documenting in the medical record Orders: Orders PT Evaluation and Treatment Today M23.50 - Chronic instability of knee, unspecified knee Medications: New diclofenac sodium 1% Apply to bilateral knees 4 times a day 4 grams topical QID 100 grams 6RF cyclobenzaprine 10 mg (2 x 5 mg) PO BEDTIME 180 tabs 1RF M62.838 - Other muscle spasm Discontinued ibuprofen Discontinued Reason: Patient no longer taking 800 mg PO Q8H PRN 30 tabs 0RF pain Coding Level of Care Code Est Pt Level 5 (55866) Diagnoses Fibromyalgia M79.7
[2024-12-17 11:07] VITALS: BP 115/72; PULSE 78; O2SAT 98; BMI 21.3
--- OUTSIDE RECORDS SUMMARY | 2024-12-17 14:04 | XMS_ITS | Encounter Summary ---
Author Organization [employer] Address [address] [facility] 7 [place] [address] Care Team Providers Care Women Specialist Name Role Phone Unavailable Primary Care Provider Unavailabl e Reason for Visit * Reason Onset Date Comments New Patient 01/12/2023 Encounter Details Date Type Department Care Team ([facility] st Contact Info) Description 01/12/2023 Telephone [facility] [address] [place], [place] [phone] Carrington Quezada MD [address] [place], [place] [phone] New Patient Social History Tobacco Use Types [...] left voicemail to give a call at [phone]. 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 EFFECTIVE SINCE 01/12/2023 documented in this encounter Plan of Treatment Not on file documented as of this encounter Visit Diagnoses Not on filedocumented in this encounter
--- OUTSIDE RECORDS SUMMARY | 2024-12-17 14:04 | XMS_ITS | Clinical Summary ---
Author Organization [employer] Address [address] [place] [address] [address] [place] [address] Care Team Providers Care Credit Card Interviewer Name Role Phone Unavailable Primary Care Provider [...] 1983 Lipid Panel 1983 SDOH Screening 1983 Disability Screening 1983 Alcohol/Substance Use Screening 1995 Tobacco Screening 1995 Family Planning (PISQ) 1998 HPV Vaccines (1 - Male 3-dos e series) 1998 Hepatitis C Screening 2001 DTaP/Tdap/Td Vaccines (1 - Tdap) 2002 Hepatitis B Vaccines (1 of 3 - 19+ 3-dose series) 2002 COVID-19 Vaccine (1 - 2023-2 5 season) 2024 Influenza Vaccine (#1) 2024 Zoster Vaccines (1 of 2) 2033 RSV [...] patient's age to complete this topic Meningococcal B Vaccine Aged Out No l onger eligible based on patient's age to complete this topic Meningococcal Vaccine Aged Out No jose elias vikas eligible based on patient's age to complete this topic Pneumococcal Vaccine: Pediat rics (0 to 5 Years) and At-Risk Patients (6 to 49) Years Aged Out No longer eligible b ased on patient's age to complete this topic RSV under 20 months Aged Out No longe r eligible based on patient's age to complete this topic Rotavirus Vaccines Aged Out No longer eligible based on patient's age to complete this topic Insurance [facility] STANDARD
== END 2024-12-17 11:37 | disposition home or self-care (01) ==
LOC: HO.RHES 10:36
PROVIDERS: PCP Nurse Practitioner Family; Visit Provider Student in an Organized Health Care Education/Training Program
DX: M79.7 Fibromyalgia (principal)
CPT/HCPCS: 99215

== ENCOUNTER → 2024-12-17 10:35 | Outpatient (BNVA) | payer OTHER, SELFPAY | PROVIDERS: PCP Nurse Practitioner Family; Visit Provider Student in an Organized Health Care Education/Training Program | DX: Z71.2 Person consulting for explanation of examination or test findings (principal); M79.7 Fibromyalgia | CPT/HCPCS: 99212 ==

== ENCOUNTER 2025-03-25 13:11 | Outpatient (AMB) | payer OTHER, SELFPAY ==
[2025-03-25 13:12] VITALS: BP 112/72; PULSE 74; RESP 16; TEMP 36.7; O2SAT 97; BMI 22.4
--- NOTE | 2025-03-25 13:12 | A.OFFPC_ITS ---
Vital Signs 03/25/25 13:12 Height 5 ft 9 in Weight 152 lb BMI 22.4 BP 112/72 Blood Pressure Location Rt brachial Position Sitting Respiration 16 Pulse 74 Pulse Source Pulse Oximeter Temp 98.0 F Temp Source Oral Pulse Oximetry (%) 97 Oxygen Delivery Method Room Air Intake Visit Reasons: 5m f/u Intake Note: Pt is here today for her 5mo. 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 Required: No Allergies LAUNDRY DETERGENT Allergy (Unknown, Uncoded 03/25/25 13:13) UNKNOWN Medication List - Last Reconciled 03/25/25 by Nicolas Snyder, COUNTER HELP- docusate sodium (Colace) 100 mg PO BID 90 days magnesium oxide 400 mg PO BEDTIME 90 days riboflavin (vitamin B2) 400 mg PO DAILY 90 days sumatriptan succinate take 1 tab at onset of headache; if no relief may repeat 1 tab after at least 2 hrs; max = 4 tabs/24 hr PO 30 days Tobacco use date assessed: 03/25/25 Dental Screening Dental Screen Date: 03/25/25 Did you have a dental visit in the last 12 months?: Yes Did you have a dental problem in the last 6 months where you did not have access to dental care?: Yes Was dental information given to patient?: Patient has dentist HPI 5m f/u HPI Details Chief Complaint Patient presents for a follow-up visit regarding recurrent migraines. History of Present Illness The patient is a 40 year old male presenting with follow-up for recurrent migraines. He had migraines as a child, and they have recently returned, occurring daily or on most days of the week. The headaches are primarily in the forehead and can radiate to the temporal, occipital, and vertex regions. He experiences intermittent auras, has a history of seeing red dots, and continues to have photophobia. His past medical history is significant for spinal meningitis as a child. He was recently evaluated by a office administrator for generalized aches, pains, and fatigue, with a questionable diagnosis of fibromyalgia. He also has a history of depression and anxiety but denies any suicidal or homicidal ideation. constipation: will start him on stool softeners Social History - Mental Health: He has a history of anx iety and depression but currently declines referrals to a therapist or psychiatrist. Health Maintenance - Follow-up is recommended in 4 months. Review of Systems - Neurological: Reports daily or near-da fox headaches, primarily in the forehead with radiation to the temporal, occipital, and vertex regions. - Eyes: Reports photophobia and intermit tent auras, with a history of seeing red dots. - Constitutional: Reports fatigue. - Musculoskeletal: Reports generalized a ches and pains. - Psychiatric: Acknowledges a history of anxiety and depression. - Denies suicidal or homicidal ideation. -denies blood in stool denies any n/v, blurred vision Physical Exam General: Cooperative, healthy appearing, comfortable, no acute distress and well developed Orientation: Patient oriented x3 Limitations: No limitations Head: Normal to inspection Ears: Hearing grossly normal bilaterally Nose: Normal external nose present Face and sinus: Normal facial exam Eyes: Appearance normal, both eyes and all related structures. Photophobia noted during the exam Neck: Normal visual inspection and Yes full ROM Respiratory: Normal respiratory effort and able to speak in complete sentences. Clear to auscultation bilaterally Cardiovascular: Regular rate and rhythm. Normal S1 and S2 GI: Normal to inspection. Soft to palpation and nontender Skin: No rashes or lesions noted Neuro: Patient oriented x3. CN2 through 12 intact. Heal to barnes was intact, arm pull test was negative, finger to thumb test was negative Extremities: Normal to inspection Results Plan 1. Migraine With Aura A CT scan of the brain will be ordered, as he has not had any recent imaging. For migraine prevention, he will start vitamin B2 400 mg in the morning and magnesium oxide at night. A prescription for a triptan will be provided for abortive therapy. 2. Fatigue Further laboratory tests will be ordered to investigate the cause of his fatigue, which is being considered in the context of a recent rheumatology evaluation for possible fibromyalgia. 3. Depression The patient has a history of depression and denies suicidal or homicidal ideation. He declined a referral to a therapist or psychiatrist at this time. 4. Follow-Up The patient will follow up in 4 months. constipation: starting stool softeners Discussion Notes I have discussed with the patient the management plan for his recurrent migraines. We will proceed with a CT scan of his brain for further evaluation, given the lack of recent imaging. I have recommended starting vitamin B2 and magnesium oxide for prevention and have prescribed a triptan for acute treatment. We also discussed ordering labs to investigate his fatigue. He has declined a mental health referral at this time. A follow-up visit is scheduled in 4 months to review his progress. Patient Instructions - We will order a CT scan of your brain to look for a cause of your headaches. - Start taking Vitamin B2 400 mg every m orning to help prevent your migraines. - Take magnesium oxide at night as anoth er measure to prevent migraines. - We have sent a prescription for a trip callahan medication for you to use when you feel a migraine starting. - We will order blood work to investigat e the cause of your fatigue. - Please follow up in the office in 4 mo nths. [facility] Medical History Anxiety Polysubstance abuse Surgical History Hx of repair of rotator cuff Family History Mother Ankylosing spondylitis Father Stroke Social History Household Members: Significant Other Housing: House Alcohol intake: current Comment: Rare Patient Tobacco Use Status: Current everyday Tobacco user Cigarettes Per Day: 20 e-Cigarette/Vaping Use: Former Use service: No Current occupational status: unemployed Cognitive needs: No Hearing needs: No Vision needs: No Questionnaire Thrive Questionnaire Date Thrive assessed: 05/28/24 I am a: Patient What is your living situation today?: I have a place to live, but I am worried about losing it in the future Within the past 12 months, did the food you bought not last and you didn't have the money to get more?: Never true Within the past 12 months, did you worry whether your food would run out before you got money to buy more?: Never true Do you have trouble paying for medicines?: No Do you have trouble getting transportation to medical appointments?: Yes Do you have trouble paying your heating and electricity bill?: Yes Do you have trouble taking care of your child, family member or friend?: No Do you have trouble with day-to-day activities such as bathing, preparing meals, shopping, managing finances, etc.?: No Are you currently unemployed and looking for a job?: I choose not to answer this question Are you interested in more education?: No Currently or been in a relationship where the following occur: I choose not to answer THRIVE Score: 3 Physical exam (Primary Care) Vital Signs: Last Vital Signs Temp 98.0 F 03/25/25 13:12 Pulse 74 03/25/25 13:12 Resp 16 03/25/25 13:12 BP 112/72 03/25/25 13:12 Pulse Ox 97 03/25/25 13:12 Oxygen Delivery Method Room Air 03/25/25 13:12 BMI result Body Mass Index 22.4 Tobacco/Smoking Status: Tobacco use Status Tobacco use date assessed 03/25/25 03/25/25 13:17 Patient Tobacco Use Status Current everyday Tobacco 03/25/25 13:17 e-Cigarette/Vaping Use Former Use 03/25/25 13:17 Thrive Assessment: Date of Thrive Assessment Date Thrive assessed 05/28/24 03/25/25 13:17 Currently or been in a relationship where the following occur: I choose not to answer Coding Level of Care Code Est Pt Level 4 (80477) Diagnoses Joint pain M25.50 Migraines G43.909 Migraine with aura G43.109 Vitamin D deficiency E55.9 Fatigue R53.83 Constipation K59.00 Assessment & Plan Assessment & Plan (1) Joint pain: Code(s): M25.50 - Pain in unspecified joint Category: Medical (2) Migraines: Code(s): G43.909 - Migraine, unspecified, not intractable, without status migrainosus Category: Medical (3) Migraine with aura: Code(s): G43.109 - Migraine with aura, not intractable, without status migrainosus Category: Medical (4) Vitamin D deficiency: Code(s): E55.9 - Vitamin D deficiency, unspecified Category: Medical (5) Fatigue: Code(s): R53.83 - Other fatigue Category: Medical (6) Constipation: Code(s): K59.00 - Constipation, unspecified Category: Medical Plan . Orders: Orders Complete Blood Count Auto Diff Today G43.909 - Migraine, unspecified, not intractable, without status migrainosus, M25.50 - Pain in unspecified joint Comprehensive [place]. Panel Fast Today G43.909 - Migraine, unspecified, not intractable, without status migrainosus, M25.50 - Pain in unspecified joint TSH reflex Free T4 Today G43.909 - Migraine, unspecified, not intractable, without status migrainosus, M25.50 - Pain in unspecified joint UA CC w/rflx Micro + Cult Today G43.909 - Migraine, unspecified, not intractable, without status migrainosus, M25.50 - Pain in unspecified joint Lipid Panel Today G43.909 - Migraine, unspecified, not intractable, without status migrainosus, M25.50 - Pain in unspecified joint Drug Screen Urine Today G43.909 - Migraine, unspecified, not intractable, without status migrainosus, M25.50 - Pain in unspecified joint Opiate Screen Urine Today G43.909 - Migraine, unspecified, not intractable, without status migrainosus, M25.50 - Pain in unspecified joint CT head/brain wo IV con Today G43.109 - Migraine with aura, not intractable, without status migrainosus Vitamin D 25-OH Total Today E55.9 - Vitamin D deficiency, unspecified Vitamin B12 and Folate Today G43.109 - Migraine with aura, not intractable, without status migrainosus, G43.909 - Migraine, unspecified, not intractable, without status migrainosus Medications: New docusate sodium (Colace) 100 mg PO BID 180 caps 0RF 90 days sumatriptan succinate take 1 tab at onset of headache; if no relief may repeat 1 tab after at least 2 hrs; max = 4 tabs/24 hr PO 14 tabs 0RF 30 days riboflavin (vitamin B2) 400 mg PO DAILY 90 tabs 0RF 90 days magnesium oxide 400 mg PO BEDTIME 90 tabs 0RF 90 days
--- OUTSIDE RECORDS SUMMARY | 2025-03-25 14:19 | XMS_ITS | Clinical Summary ---
Author Organization [email or web address] Address [address] [place] [address] [address] [place] [address] Care Team Providers Care Pillow Filler Name Role Phone Unavailable Primary Care Provider [...] 3-dose series) 2002 COVID-19 Vaccine (1 - 2024-2 6 season) 2024 Influenza Vaccine (#1) 2024 Zoster [...] patient's age to complete this topic Insurance [facility] STANDARD
--- OUTSIDE RECORDS SUMMARY | 2025-03-25 14:19 | XMS_ITS | Encounter Summary ---
Author Organization [employer] Address [address] [facility] [address] [place] [address] Care Team Providers Care Hand Folder Name Role Phone Unavailable Primary Care Provider Unavailabl e Reason for Visit * Reason Onset Date Comments New Patient 01/12/2023 Encounter Details Date Type Department Care Team ([facility] st Contact Info) Description 01/12/[address] [facility] MEDICINE [address] [place], [place] [phone] Carrington Quezada MD [address] [place], [place] [phone] New Patient Social History Tobacco Use Types [...] left voicemail to give a call at [phone]. 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 EFFECTIVE SINCE 01/12/2023 documented in this encounter Plan of Treatment Not on file documented as of this encounter Visit Diagnoses Not on filedocumented in this encounter
== END 2025-03-25 14:39 | disposition home or self-care (01) ==
LOC: HO.HMCC 13:11
PROVIDERS: PCP Nurse Practitioner Family; Visit Provider Nurse Practitioner Family
DX: M25.50 Pain in unspecified joint (principal); G43.909 Migraine, unspecified, not intractable, without status migrainosus; G43.109 Migraine with aura, not intractable, without status migrainosus; E55.9 Vitamin D deficiency, unspecified; R53.83 Other fatigue; K59.00 Constipation, unspecified

== ENCOUNTER → 2025-03-25 13:11 | Outpatient (BNVA) | payer OTHER, SELFPAY | PROVIDERS: PCP Nurse Practitioner Family; Visit Provider Nurse Practitioner Family | DX: G43.109 Migraine with aura, not intractable, without status migrainosus (principal); M25.50 Pain in unspecified joint; R53.83 Other fatigue; K59.00 Constipation, unspecified; E55.9 Vitamin D deficiency, unspecified; F32.A Depression, unspecified | CPT/HCPCS: 99212 ==